=== PATIENT | male | born 1950 | race Caucasian/White ===

== ENCOUNTER 2020-01-11 16:18 | Emergency (ER) | payer MEDICARE, OTHER ==
--- OUTSIDE RECORDS SUMMARY | 2020-01-11 16:46 | XMS REPORT | Clinical Summary ---
:1950 Author Organization [facility], Address [id number] [place] [address] Care Team Providers Name Role Phone Didi MARRERO, Dr Robbins Unavailable Allergies Allergy Onset Date Reaction Severity Status Statins (HMG-CoA Not Indicated Not Indicated Moderate Active reductase inhibitors) Lyrica Not Indicated Dizziness/Lighthe Moderate Active adedness Baclofen Not Indicated Dizziness/Lighthe Mild Active adedness Methocarbamol Not Indicated Dizziness/Lighthe Mild Active adedness Assessment and Plan Assessment and Plan Date of Encounter: 2019-12-12 Plan: PLAN: Request new TENS. f/u with Dr. Live. F/u Dr. Rm at [facility]. Continue PT when able. Continue lidocaine patch. f/u with me in 3mo.. REQUEST AUTHORIZATION FOR TENS FOR HOME USE. PRIOR UNIT IS BROKEN AND NEEDS REPLACEMENT. Itzel Tolbert MD. cc: Dr. Robb; Dr. Live; Dr. Rm ([facility]) Date of Encounter: 2019-08-29 Plan: PLAN: f/u with Dr. Live on potential surgical options. Continue PT. f/u with Dr. Brooks to for injections and consider SCS. Continue lidocaine patch. I advis ed him this will go to 4% with the new drug formulary. D/c baclofen. Retrial of cyclobenzaprine prn. He was warned of sedative and lightheaded side effects. f/u with me in 3mo.. Itzel Tolbert MD. cc: Dr. Robb; Dr. Brooks ([facility]); Dr. Live. Date of Encounter: 2019-08-29 Addendum date 2019-08-29 source: Referral: REFERRALS: DR DANIEL ROBB via Fax, Jarred Live via Fax Date of Encounter: 2019-07-10 Plan: PLAN: X-ray lumbar spine with flex/ext views. I will call with results. f/u with Dr. Live on potential surgical options. Continue PT, which should go back t o 1x/wk after 6wks 2x/wk are completed. f/u with Dr. Brooks to discuss injections and SCS. Continue lidocaine patch. 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 f/u with me in 2mo.. Itzel Tolbert MD. cc: Dr. Robb; Dr. Brooks ([facility]); Dr. Live Date of Encounter: 2019-05-30 Plan: PLAN: MRI L-spine. His loop recorder card says "MRI conditional." Increase PT to 2x/wk for 6 wks then back to 1x/wk for 13 wks. f/u with Dr. Patel and Cecilia to discuss injections and SCS. f/u with me in 2mo.. REQUEST AUTHORIZATION FOR MRI OF THE LUMBAR SPINE WO CONTRAST AND PHYSICAL THERAPY FOR 2X/WK FOR 6 WKS AND THEN 1X/WK FOR 12 WKS Itzel Tolbert MD. cc: Dr. Robb; Dr. Brooks ([facility]); Dr. Patel Date of Encounter: 2019-05-30 Addendum date 2019-05-31 source: Referral: REFERRALS: DR DANIEL ROBB via Fax, RASHAWN PATEL via Fax Date of Encounter: 2019-05-17 Addendum date 2019-05-17 source: Doctor: Prashanth called [facility] and Dr. Patel will not be available until the week of 05-27-19. I tried to call Prashanth back and it was busy. Date of Encounter: 2019-04-18 Plan: PLAN: Continue PT and HEP. f/u with Dr. Brooks to discuss SCS. f/u with me in 3mo.. Itzel Tolbert MD. cc: Dr. Robb; Dr. Brooks ([facility]). Date of Encounter: 2019-04-18 Addendum date 2019-04-18 source: Referral: REFERRALS: DR DANIEL ROBB via Fax Date of Encounter: 2019-04-18 Addendum date 2019-04-18 source: Referral: REFERRALS: DR DANIEL ROBB via Fax Date of Encounter: 2019-01-17 Plan: PLAN: Continue PT and HEP. f/u with Dr. Brooks for another injection and to discuss SCS. f/u with me in 3mo.. Itzel Tolbert MD. cc: Dr. Robb; Dr. Brooks ([facility]). Date of Encounter: 2019-01-17 Addendum date 2019-01-17 source: Referral: REFERRALS: DR DANIEL ROBB via Fax Date of Encounter: 2019-01-17 Addendum date 2019-01-22 source: Doctor: REQUEST AUTHORIZATION FOR PHYSICAL THERAPY 1X/WEEK FOR 13 WEEKS FOR THERAPEUTIC EXERCISE. Date of Encounter: 2018-09-03 Plan: PLAN: Continue PT and HEP. f/u with Dr. Brooks prolga. Otherwise f/u with me in 3mo. Itzel Tolbert MD. cc: Dr. Robb; Dr. Brooks ([facility]) Date of Encounter: 2018-09-03 Addendum date 2018-09-03 source: Referral: REFERRALS: DR DANIEL ROBB via Fax Date of Encounter: 2018-04-19 Plan: PLAN: Continue PT and HEP. f/u with Dr. Brooks prolga if he decides to pursue SCS. Otherwise f/u in 3mo or sooner if needed. Itzel Tolbert MD. cc: Dr. Robb. Date of Encounter: 2018-04-19 Addendum date 2018-04-19 source: Referral: REFERRALS: DR DANIEL ROBB via Fax Date of Encounter: 2018-01-17 Plan: PLAN: Continue PT. He will be referred to the pain clinic at [facility] to consider IVY. He did see Dr. Gonzalez in the past before he had piriformis release. f/u in 3mo. Itzel Tolbert MD. cc: Dr. Robb. Date of Encounter: 2018-01-17 Addendum date 2018-01-17 source: Referral: REFERRALS: DR DANIEL ROBB via Fax Date of Encounter: 2018-01-17 Addendum date 2018-01-18 source: Doctor: Prashanth will see Dr. Patel. [facility] thought his ortho appt was the appt for Dr. Patel. He will see him in the next week. Date of Encounter: 2017-10-25 Plan: PLAN: Resend referral to Dr. Patel for consultation. Continue PT. I told him to decrease cymbalta to 30mg qday for a week then go to qod for a week and off to see if it does anything for his pain. f/u in 3mo.. Itzel Tolbert MD. cc: Dr. Robb. Date of Encounter: 2017-10-25 Addendum date 2017-10-26 source: Referral: REFERRALS: DR DANIEL ROBB via Fax Date of Encounter: 2017-07-24 Plan: PLAN: Refer to Dr. Patel for consultation. Continue PT and cymbalta. f/u in 3mo.. Itzel Tolbert MD. cc: Dr. Robb. Date of Encounter: 2017-07-24 Addendum date 2017-07-24 source: Referral: REFERRALS: DR DANIEL ROBB via Fax Date of Encounter: 2017-05-25 Plan: PLAN: Request updated MRI of L-spine that has not been done since 2012. We may also consider need for updated pelvis MRI. We discussed pain clinic for IVY again. I will restart cymbalta which he weaned off after surgery. f/u in 3mo.. REQUEST AUTHORIZATION FOR MRI OF LUMBAR SPINE. Itzel Tolbert MD. cc: Dr. Robb. Date of Encounter: 2017-05-25 Addendum date 2017-05-25 source: Referral: REFERRALS: DR DANIEL ROBB via Fax Date of Encounter: 2017-02-16 Plan: PLAN: I will ask for additional PT and f/ u in 3mo.. REQUEST AUTHORIZATION FOR PHYSICAL THERAPY 1X/WK FOR 12WKS.. Itzel Tolbert MD. cc: Dr. Robb. Date of Encounter: 2017-02-16 Addendum date 2017-02-16 source: Referral: REFERRALS: DR DANIEL ROBB via Fax Date of Encounter: 2016-10-24 Plan: PLAN: I will ask for PT and f/u in 3mo. REQUEST AUTHORIZATION FOR PHYSICAL THERAPY 2X/WK FOR 6WKS. Itzel Tolbert MD. cc: Dr. Robb. Date of Encounter: 2015-10-21 Plan: PLAN: Continue HEP. f/u next year or sooner if needed. Itzel Tolbert MD. cc: Dr. Robb. Date of Encounter: 2015-05-07 Plan: PLAN: Continue HEP. f/u in 6mo or sooner if needed. We discussed getting a new mattress to help with night pain and use of acetaminophen 1000mg qhs. Itzel Tolbert MD. cc: Dr. Robb. Date of Encounter: 2015-02-05 Plan: PLAN: Continue HEP. f/u with me in 3mo to determine if at [facility]. Itzel Tolbert MD. cc: Dr. Robb. Date of Encounter: 2014-11-12 Plan: PLAN: Continue PT. f/u with me in 3mo. Itzel Tolbert MD. cc: Dr. Connor, Dr. Taylor, Dr. Robb. Date of Encounter: 2014-07-24 Plan: PLAN: Continue PT. I educated him in the weaning process for Cymbalta. I rx 30mg pills and he will decrease the dose. If he gets any withdrawl he will try to alt ernate 30mg with 60mg for a week and then go to 30mg qday. About a week or two after this he can try to d/c the med. He is to call with any questions or if he finds pain increases as he decreases or st ops cymbalta he will call for a new prescription for 90days that he can use for the mailorder pharmacy. f/u with me in 3mo. Itzel Tolbert MD. cc: Dr. Connor, Dr. Taylor, Dr. Robb. MEDICATIONS: Cymbalta 30 mg oral delayed release capsule Take 1 po qday. (start date : 07/24/2014) prescription: qty 30 of 30 mg Take 1 po qday. ( 1 refills) Date of Encounter: 2014-04-29 Plan: PLAN: Restart PT as ordered by ortho. Continue cymbalta for now. Time will tell if he needs to continue it and/or PT to keep working. He is out of work per ortho. I educated him on weaning off percocet by using acetaminophen prn. f/u with me in 3mo. Itzel Tolbert MD cc: Dr. Connor, Dr. Taylor, Dr. Robb MEDICATIONS: Cymbalta 60 mg oral delayed release capsule 60 mg Take 1 po qday. (start date: 03/07/2012) prescription: not prescribed this visit Date of Encounter: 2014-01-07 Plan: PLAN: Steroid injection today directed at the hamstring origin. Continue PT and f/u with orthopedics on potential interventions. Continue same meds. f/u with me in 2 months. He will f/u with his PCP on EMG/NCS results. PROCEDURE: STEROID INJECTION FOR SCIATICA AT THE ORIGIN OF THE HAMSTRINGS AT THE ISCHIAL TUBEROSITY. The sciatic nerve and ischial tuberosity were identified using real-time ultrasound. The intended injection site was marked with indelible marker. The patient was advised of risks of injection (including, but not limited to bleeding and infection and nerve injury), benefits (possible pain relief), alternatives (including PT and medications), and expected results (including increased pain and no improvement). He decided to proceed with the injection. The area was cleansed with iodine and alcohol and then injected at the ischial tuberosity with 3ml of 1% lidocaine and 40mg depomedrol. He did not experience any paresthesias. No complications. He was advised to ice the injected area 20min 3x today and tomorrow. Itzel Tolbert MS, MD. CC: Dr. Robb, Dr. Connor, Dr. Taylor Date of Encounter: 2013-10-10 Plan: PLAN: I gave him a copy of the PT prescription I wrote on 09/17/13. A MG2 was already faxed in. He is currently our of work for a injury to his wrist and not due to his back. Ideally he would still continue PT with the expectation that he will return to work. Continue same meds. f/u with me in 3 months. Itzel Tolbert MS, MD. CC: Dr. Robb MEDICATIONS: Cymbalta 60 mg oral delayed release capsule 60 mg Take 1 po qday. (start date: 03/07/2012) prescription: not prescribed this visit Care goals and future scheduled procedures: Pain severity - Reported Care goals and future scheduled procedures: Pneumococcal vaccination given ( finding) Care goals and future scheduled procedures: Falls risk assessment Care goals and future scheduled procedures: Pain severity - Reported Care goals and future scheduled procedures: Falls risk assessment Care goals and future scheduled procedures: Pneumococcal vaccination given ( finding) Care goals and future scheduled procedures: Pain severity - Reported Care goals and future scheduled procedures: Pneumococcal vaccination given ( finding) Care goals and future scheduled procedures: Falls risk assessment Care goals and future scheduled procedures: Pain severity - Reported Care goals and future scheduled procedures: Pneumococcal vaccination given ( finding) Care goals and future scheduled procedures: Falls risk assessment Care goals and future scheduled procedures: Pain severity - Reported Care goals and future scheduled procedures: Falls risk assessment Care goals and future scheduled procedures: Pneumococcal vaccination given ( finding) Care goals and future scheduled procedures: Pain severity - Reported Care goals and future scheduled procedures: Falls risk assessment Care goals and future scheduled procedures: Pneumococcal vaccination given ( finding) Care goals and future scheduled procedures: Pain severity - Reported Care goals and future scheduled procedures: Falls risk assessment Care goals and future scheduled procedures: Pneumococcal vaccination given ( finding) Care goals and future scheduled procedures: Pain severity - Reported Care goals and future scheduled procedures: Falls risk assessment Care goals and future scheduled procedures: Pneumococcal vaccination given ( finding) Care goals and future scheduled procedures: Pain severity - Reported Care goals and future scheduled procedures: Pneumococcal vaccination given ( finding) Care goals and future scheduled procedures: Falls risk assessment Care goals and future scheduled procedures: Pain severity - Reported Care goals and future scheduled procedures: Falls risk assessment Care goals and future scheduled procedures: Pneumococcal vaccination given ( finding) Care goals and future scheduled procedures: Pain severity - Reported Care goals and future scheduled procedures: Pain severity - Reported Care goals and future scheduled procedures: Falls risk assessment Care goals and future scheduled procedures: Pneumococcal vaccination given ( finding) Care goals and future scheduled procedures: Pain severity - Reported Care goals and future scheduled procedures: Pain severity - Reported Care goals and future scheduled procedures: Falls risk assessment Care goals and future scheduled procedures: Pneumococcal vaccination given ( finding) Care goals and future scheduled procedures: Pain severity Bae-Jean FACES pain rating scale Care goals and future scheduled procedures: Falls risk assessment Care goals and future scheduled procedures: Pneumococcal vaccination given ( finding) Care goals and future scheduled procedures: Pain severity Bae-Jean FACES pain rating scale Care goals and future scheduled procedures: Falls risk assessment Care goals and future scheduled procedures: Pneumococcal vaccination given ( finding) Care goals and future scheduled procedures: Transfer of care (procedure) Care goals and future scheduled procedures: Transfer of care (procedure) Care goals and future scheduled procedures: Transfer of care (procedure) Care goals and future scheduled procedures: Transfer of Care (procedure) Care goals and future scheduled procedures: Transfer of care (procedure) Care goals and future scheduled procedures: Transfer of care (procedure) Care goals and future scheduled procedures: Transfer of Care (procedure) Care goals and future scheduled procedures: Transfer of care (procedure) Care goals and future scheduled procedures: Transfer of care (procedure) Care goals and future scheduled procedures: Transfer of care (procedure) Care goals and future scheduled procedures: Transfer of care (procedure) Care goals and future scheduled procedures: Transfer of care (procedure) Care goals and future scheduled procedures: Transfer of Care (procedure) Care goals and future scheduled procedures: Transfer of care (procedure) Care goals and future scheduled procedures: Transfer of care (procedure) Care goals and future scheduled procedures: Transfer of Care (procedure) Care goals and future scheduled procedures: Transfer of care (procedure) Care goals and future scheduled procedures: Transfer of care (procedure) Care goals and future scheduled procedures: Transfer of care (procedure) Care goals and future scheduled procedures: Transfer of care (procedure) Care goals and future scheduled procedures: Transfer of care (procedure) Care goals and future scheduled procedures: Transfer of Care (procedure) Care goals and future scheduled procedures: Transfer of care (procedure) Care goals and future scheduled procedures: Transfer of Care (procedure) Care goals and future scheduled procedures: Transfer of care (procedure) Tests Pending: MR Lumbar spine WO contrast Expected results on: 2017-06-01 Tests Pending: MR Lumbar spine WO contrast Expected results on: 2019-05-30 Tests Pending: XR Lumbar spine Lateral Views W flexion and W extension Expected results on: 2019-07-10 Encounters Encounter Diagnosis Location Date Not specified [facility] 2019-12-13 Spondylolisthesis, lumbar [facility] 2019-12-12 region Sciatica, right side [facility] 2019-12-12 Spinal stenosis of lumbar [facility] 2019-12-12 region Not specified [facility] 2019-10-16 Not specified [facility] 2019-09-09 Spondylolisthesis, lumbar [facility] 2019-08-29 region Sciatica, right side [facility] 2019-08-29 Spinal stenosis of lumbar [facility] 2019-08-29 region Not specified [facility] 2019-08-20 Not specified [facility] 2019-08-19 Not specified [facility] 2019-08-09 Not specified [facility] 2019-08-08 Not specified [facility] 2019-07-29 Spondylolisthesis, lumbar [facility] 2019-07-10 region Sciatica, right side [facility] 2019-07-10 Spinal stenosis of lumbar [facility] 2019-07-10 region Not specified [facility] 2019-06-18 Not specified [facility] 2019-06-17 Spondylolisthesis, lumbar [facility] 2019-05-30 region Sciatica, right side [facility] 2019-05-30 Spinal stenosis of lumbar [facility] 2019-05-30 region Not specified [facility] 2019-05-30 Not specified [facility] 2019-05-28 Not specified [facility] 2019-05-17 Not specified [facility] 2019-05-10 Not specified [facility] 2019-05-08 Not specified [facility] 2019-05-08 Not specified [facility] 2019-05-07 Not specified [facility] 2019-05-01 Spondylolisthesis, lumbar [facility] 2019-04-18 region Sciatica, right side [facility] 2019-04-18 Spinal stenosis of lumbar [facility] 2019-04-18 region Not specified [facility] 2019-01-24 Spondylolisthesis, lumbar [facility] 2019-01-17 region Sciatica, right side [facility] 2019-01-17 Spinal stenosis of lumbar [facility] 2019-01-17 region Sciatica, right side [facility] 2018-09-03 Spinal stenosis of lumbar [facility] 2018-09-03 region Not specified [facility] 2018-07-31 Spondylolisthesis, lumbar [facility] 2018-04-19 region Sciatica, right side [facility] 2018-04-19 Spinal stenosis of lumbar [facility] 2018-04-19 region Spondylolisthesis, lumbar [facility] 2018-01-17 region Medicine Sciatica, right side [facility] 2018-01-17 Medicine Spinal stenosis of lumbar [facility] 2018-01-17 region Medicine Spondylolisthesis, lumbar [facility] 2017-10-25 region Medicine Spinal stenosis of lumbar [facility] 2017-10-25 region Medicine Spondylolisthesis, lumbar [facility] 2017-07-24 region Medicine Sciatica, right side [facility] 2017-07-24 Medicine Spinal stenosis of lumbar [facility] 2017-07-24 [facility] Not specified [facility] 2017-07-06 Medicine Not specified [facility] 2017-06-01 Medicine Not specified [facility] 2017-05-26 Medicine Rupture of hamstring tendon [facility] 2017-05-25 Medicine Spondylolisthesis, lumbar [facility] 2017-05-25 [facility] Sciatica, right side [facility] 2017-05-25 Medicine Not specified [facility] 2017-02-27 Medicine Spondylolisthesis, lumbar [facility] 2017-02-16 [facility] Sciatica, right side [facility] 2017-02-16 Medicine Not specified [facility] 2016-11-03 Medicine Rupture of hamstring tendon [facility] 2016-10-24 Medicine Spondylolisthesis, lumbar [facility] 2016-10-24 region Medicine Sciatica, right side [facility] 2016-10-24 Medicine Rupture of hamstring tendon [facility] 2015-10-21 Spondylolisthesis, lumbar [facility] 2015-10-21 region Sciatica, right side [facility] 2015-10-21 Rupture of hamstring tendon [facility] 2015-05-07 Spondylolisthesis, lumbar [facility] 2015-05-07 region Lumbosacral spondylosis [facility] 2015-05-07 without myelopathy Sciatica, right side [facility] 2015-05-07 Rupture of hamstring tendon [facility] 2015-02-05 Spondylolisthesis, lumbar [facility] 2015-02-05 region Lumbosacral spondylosis [facility] 2015-02-05 without myelopathy Sciatica, right side [facility] 2015-02-05 Rupture of hamstring tendon [facility] 2014-11-12 Spondylolisthesis, lumbar [facility] 2014-11-12 region Lumbosacral spondylosis [facility] 2014-11-12 without myelopathy Sciatica, right side [facility] 2014-11-12 Rupture of hamstring tendon [facility] 2014-07-24 Spondylolisthesis, lumbar [facility] 2014-07-24 region Lumbosacral spondylosis [facility] 2014-07-24 without myelopathy Sciatica, right side [facility] 2014-07-24 Spondylolisthesis, lumbar [facility] 2014-04-29 region Lumbosacral spondylosis [facility] 2014-04-29 without myelopathy Sciatica, right side [facility] 2014-04-29 Spondylolisthesis, lumbar [facility] 2014-01-07 region Lumbosacral spondylosis [facility] 2014-01-07 without myelopathy Sciatica, right side [facility] 2014-01-07 Not specified [facility] 2014-01-02 Not specified [facility] 2013-12-17 Spondylolisthesis, lumbar [facility] 2013-10-10 region Lumbosacral spondylosis [facility] 2013-10-10 without myelopathy Sciatica, right side [facility] 2013-10-10 Not specified [facility] 2013-09-17 Not specified [facility] 2013-07-24 Not specified [facility] 2013-07-15 Not specified [facility] 2013-04-09 Not specified [facility] 2013-04-01 Not specified [facility] 2012-12-31 Not specified [facility] 2012-11-07 Not specified [facility] 2012-07-04 Not specified [facility] 2012-05-02 Not specified [facility] 2012-03-07 Not specified [facility] 2011-11-24 Functional Status No information Mental status No information Immunizations No immunization history Medications Material RXnormCode GenericName ProductStrength StartDate StopDate SIG Cymbalta 60 mg RxNorm: DULoxetine 60 mg 2012-03-07 2014-07-24 Take 1 oral delayed 076172 po release capsule qday. Flexeril 10 mg RxNorm: cyclobenzaprine 10 mg 2012-12-31 2013-11-15 Take 1 oral tablet [id number] po tid prn muscle spasm. Cymbalta 30 mg RxNorm: DULoxetine 30 mg 2014-07-24 2019-05-08 Take oral delayed [id number] 1-2 po release capsule qday Methocarbamol RxNorm: Methocarbamol 750 MG Not 2019-05-30 Take 1 750 MG Oral [id number] Indicated po Q6h Tablet prn muscle spasm Lidocaine 5 % RxNorm: Lidocaine 5 % Not Not Apply External Patch [id number] Indicated Indicated 1-3 to back and remove after 12hrs as needed Baclofen 10 MG RxNorm: Baclofen 10 MG Not 2019-08-29 Take Oral Tablet [id number] Indicated 0.5-1 po bid Cyclobenzaprine RxNorm: Cyclobenzaprine 5 MG Not Not Take HCl 5 MG Oral [id number] HCl Indicated Indicated 1/2 po Tablet qday prn severe muscle spasm Problem List Problem Description Problem StartDate Status Spinal stenosis of lumbar region 2017-07-24 active Sciatica, right side 2015-10-21 active Spondylolisthesis, lumbar region 2015-10-21 active Rupture of hamstring tendon 2015-10-21 active Lumbosacral spondylosis without Not Applicable active myelopathy Medical Equipment No Information Procedures Procedure Date Medication Reconciliation (procedure) Performed: 2019-12-12 Medication Allergy Review/Reconciliation Performed: 2019-12-12 Diagnosis and Problem List Review/Reconciliation Performed: 2019-12-12 Medication Reconciliation (procedure) Performed: 2019-08-29 Medication Allergy Review/Reconciliation Performed: 2019-08-29 Diagnosis and Problem List Review/Reconciliation Performed: 2019-08-29 Documentation of current medications (procedure) Performed: 2019-08-29 Body mass index (BMI) [Ratio] Performed: 2019-08-29 Medication Reconciliation (procedure) Performed: 2019-07-10 Medication Allergy Review/Reconciliation Performed: 2019-07-10 Diagnosis and Problem List Review/Reconciliation Performed: 2019-07-10 Body mass index (BMI) [Ratio] Performed: 2019-07-10 Documentation of current medications (procedure) Performed: 2019-07-10 Medication Reconciliation (procedure) Performed: 2019-05-30 Medication Allergy Review/Reconciliation Performed: 2019-05-30 Diagnosis and Problem List Review/Reconciliation Performed: 2019-05-30 Documentation of current medications (procedure) Performed: 2019-05-30 Body mass index (BMI) [Ratio] Performed: 2019-05-30 Medication Reconciliation (procedure) Performed: 2019-04-18 Medication Allergy Review/Reconciliation Performed: 2019-04-18 Diagnosis and Problem List Review/Reconciliation Performed: 2019-04-18 Body mass index (BMI) [Ratio] Performed: 2019-04-18 Documentation of current medications (procedure) Performed: 2019-04-18 Body mass index (BMI) [Ratio] Performed: 2019-01-17 Medication Reconciliation (procedure) Performed: 2019-01-17 Documentation of current medications (procedure) Performed: 2019-01-17 Calculated BMI above normal parameters and a Performed: 2018-09-03 follow-up plan was documented Counseling about physical activity (exercise) Performed: 2018-09-03 Medication Reconciliation (procedure) Performed: 2018-09-03 Documentation of current medications (procedure) Performed: 2018-09-03 Calculated BMI above normal parameters and a Performed: 2018-04-19 follow-up plan was documented Counseling about physical activity (exercise) Performed: 2018-04-19 Medication Reconciliation (procedure) Performed: 2018-04-19 Documentation of current medications (procedure) Performed: 2018-04-19 Calculated BMI above normal parameters and a Performed: 2018-01-17 follow-up plan was documented Counseling about physical activity (exercise) Performed: 2018-01-17 Medication Reconciliation (procedure) Performed: 2018-01-17 Documentation of current medications (procedure) Performed: 2018-01-17 Calculated BMI above normal parameters and a Performed: 2017-10-25 follow-up plan was documented Counseling about physical activity (exercise) Performed: 2017-10-25 Medication Reconciliation (procedure) Performed: 2017-10-25 Documentation of current medications (procedure) Performed: 2017-10-25 Medication Reconciliation (procedure) Performed: 2017-07-24 Documentation of current medications (procedure) Performed: 2017-07-24 Calculated BMI above normal parameters and a Performed: 2017-07-24 follow-up plan was documented Next appointment Performed: 2017-07-24 Calculated BMI above normal parameters and a Performed: 2017-05-25 follow-up plan was documented Next appointment Performed: 2017-05-25 Medication Reconciliation (procedure) Performed: 2017-05-25 Documentation of current medications (procedure) Performed: 2017-05-25 Calculated BMI above normal parameters and a Performed: 2017-02-16 follow-up plan was documented Weight control education (procedure) Performed: 2017-02-16 Medication Reconciliation (procedure) Performed: 2017-02-16 Documentation of current medications (procedure) Performed: 2017-02-16 Calculated BMI above normal parameters and a Performed: 2016-10-24 follow-up plan was documented Next appointment Performed: 2016-10-24 Medication Reconciliation (procedure) Performed: 2016-10-24 Documentation of current medications (procedure) Performed: 2016-10-24 Medication Reconciliation (procedure) Performed: 2015-10-21 Documentation of current medications (procedure) Performed: 2015-10-21 Calculated BMI above normal parameters and a Performed: 2015-10-21 follow-up plan was documented Medication Reconciliation (procedure) Performed: 2015-05-07 Documentation of current medications (procedure) Performed: 2015-05-07 Calculated BMI above normal parameters and a Performed: 2015-05-07 follow-up plan was documented Medication Reconciliation (procedure) Performed: 2015-02-05 Documentation of current medications (procedure) Performed: 2015-02-05 Calculated BMI above normal parameters and a Performed: 2015-02-05 follow-up plan was documented Medication Reconciliation (procedure) Performed: 2014-11-12 Documentation of current medications (procedure) Performed: 2014-11-12 Medication Reconciliation (procedure) Performed: 2014-07-24 Documentation of current medications (procedure) Performed: 2014-07-24 Medication Reconciliation (procedure) Performed: 2014-04-29 Documentation of current medications (procedure) Performed: 2014-04-29 Documentation of current medications (procedure) Performed: 2014-01-07 Documentation of current medications (procedure) Performed: 2013-10-10 Reason for Referral To: DR. Dixon: Content: March 07, 2012RE: Prashanth Marshall.Outpatient f/u visit #13PRIMARY CARE PROVIDER: Dr. oRbb.CHIEF COMPLAINT: L5-S1 retrolisthesis and facet arthropathy at L4-5 with sciatica.INTERIM HISTORY: This is a 61-year-old man that I initially saw on 01/13 and last on 11/24/11. I had him go back to PT. His pain was worse since being less active after heart surgery.PT helps keep him working, but his pain is still varying between 2-10/10. It is worst at the end ofthe day and he feels best when his is up active at work. He uses the TENS nightly. Lyrica each evening made him dizzy the next day so he only uses it PRN and that is rare. He keeps flexeril with himat work, but does not use that regularly. There is no new numbness, tingling, or weakness. No bowel or bladder dysfunction.MEDICATIONS: Metoprolol 75 mg qday, Flomax, Finasteride, Plavix 75 mg qday, Cymbalta 60 mg qday, aspirin 325 mg qday, Lovaza 1000 mg 4 times per day, Flexeril PRN, Lyrica 75mg qhs prn, Pravastatin.ALLERGIES: Lipitor, Vytorin , and Crestor.No change in PMH, family history, orsocial history.ROS: See HPI.PE :.GENERAL: Well-developed, well-nourished.MENTAL STATUS: No acute distress. Alert and appropriate.NEURO:. Lower Extremity Motor: 5/5 bilaterally with normal pin prick sensation and symmetric DTRs.MUSCULOSKELETAL:.STATION AND GAIT: Normal steady gait. Iliac crests equal standing.LUMBAR SPINE: Normal ROM and as it has been typical in the past his pain is deeper than where I can palpate.RIGHT LOWER EXTREMITY: Normal appearance with full ROM. No neural stretch signs. No specific tenderness to palpation.LEFT LOWER EXTREMITY: Normal appearance with full ROM. No neural stretch signs. No specific tenderness to palpation.IMPRESSION: L5-S1 retrolisthesis with facet arthropathy at L4-5 and history of sciatica. He is not getting great benefit from Lyrica and I advised to try using Flexeril instead at night as needed. He needs to continue PT to assist with keeping him working. He'd like to work until 65yo if possible.PLAN: 1. continue PT.2. Continue current meds. Try Flexeril instead of Lyrica. Keep using TENS. I renewed Cymbalta.3. f/u 3months.Itzel Tolbert MS, .cc: Dr. Robb.To: DR. Dixon: Content: March 07, 2012RE: Prashanth Marshall.Outpatient f/u visit #13PRIMARY CARE PROVIDER: Dr. Robb.CHIEF COMPLAINT: L5-S1 retrolisthesis and facet arthropathy at L4-5 with sciatica.INTERIM HISTORY: This is a 61-year-old man that I initially saw on 01/13/09 and last on 11/24/11. I had him go back to PT. His pain was worse since being less active after heart surgery.PT helps keep him working, but his pain is still varying between 2-10/10. It is worst at the end ofthe day and he feels best when his is up active at work. He uses the TENS nightly. Lyrica each evening made him dizzy the next day so he only uses it PRN and that is rare. He keeps flexeril with himat work, but does not use that regularly. There is no new numbness, tingling, or weakness. No bowel or bladder dysfunction.MEDICATIONS: Metoprolol 75 mg qday, Flomax, Finasteride, Plavix 75 mg qday, Cymbalta 60 mg qday, aspirin 325 mg qday, Lovaza 1000 mg 4 times per day, Flexeril PRN, Lyrica 75mg qhs prn, Pravastatin.ALLERGIES: Lipitor, Vytorin , and Crestor.No change in PMH, family history, orsocial history.ROS: See HPI.PE :.GENERAL: Well-developed, well-nourished.MENTAL STATUS: No acute distress. Alert and appropriate.NEURO:. Lower Extremity Motor: 5/5 bilaterally with normal pin prick sensation and symmetric DTRs.MUSCULOSKELETAL:.STATION AND GAIT: Normal steady gait. Iliac crests equal standing.LUMBAR SPINE: Normal ROM and as it has been typical in the past his pain is deeper than where I can palpate.RIGHT LOWER EXTREMITY: Normal appearance with full ROM. No neural stretch signs. No specific tenderness to palpation.LEFT LOWER EXTREMITY: Normal appearance with full ROM. No neural stretch signs. No specific tenderness to palpation.IMPRESSION: L5-S1 retrolisthesis with facet arthropathy at L4-5 and history of sciatica. He is not getting great benefit from Lyrica and I advised to try using Flexeril instead at night as needed. He needs to continue PT to assist with keeping him working. He'd like to work until 65yo if possible.PLAN: 1. continue PT.2. Continue current meds. Try Flexeril instead of Lyrica. Keep using TENS. I renewed Cymbalta.3. f/u 3months.Itzel Tolbert MS, .cc: Dr. Robb.To: DR. iDxon: Content: May 02, 2012RE: Prashanth Ahnpatient f/u visit #14.PRIMARY CARE PROVIDER: Dr. Pickering COMPLAINT: L5-S1 retrolisthesis and facet arthropathy at L4-5 with history of sciatica.INTERIM HISTORY: This is a 61-year-old man that I initially saw on 01/13/09 and last on 03/07/12. At that time hereported that Lyrica was making him a bit dizzy so he only usedit as needed at bedtime and that was fairly rare. Apparently since then he was having more issues not being able to sleep with his pain so he was taking it more on a regular basis, but he started getting dizziness during the day. He also in general has had body aches upper and lower which he has attributed before to using Statin medications for his cholesterol. He has been trying to get off of his medications as a result of this to figure out if one of them is the cause of his pain. He stopped taking Pravastatin and then also decided to go off of Cymbalta. Unfortunately, when he did it about 2 weeks ago he immediately got hip pain back and he has just not been feeling right since. He has stiffnessthroughout his body and still complains of dizziness. He works for the [employer] and he is not sure that he is safe to be working especially with the dizziness. He denies any new leg numbness, tingling, or weakness. No bowel or bladder dysfunction.MEDICATIONS : Reviewed with the patient, Metoprolol 75 mg qday, Flomax, Finasteride, Plavix 75 mg qday, Cymbalta - he stopped taking, aspirin 325 mg qday, Lovaza 1000 mg 4 times per day, Lyrica 75mg qhs.ALLERGIES: Lipitor, Vytorin, Pravastatin, Crestor , Lyrica. He has been told not to take any gabriella medications.No change in PMH, family history, or social history.ROS: See HPI.PE:GENERAL: Well-developed, well- nourished.MENTAL STATUS: No acute distress. Alert and appropriate.NEURO:Lower Extremity Motor: 5/5 bilaterally with normal pin prick sensation and symmetric DTRs.MUSCULOSKELETAL:STATION AND GAIT: Iliac crests equal standing. He is able to heeland toe walk.LUMBAR SPINE: Normal ROM, although he has difficulty with extension and approx 75% bilateral lateral bending. No specific tenderness to palpation.RIGHT LOWER EXTREMITY: Normal appearance with full ROM. Positive slump test. He is tender directly at the sciatic notch. Negative Gee.LEFT LOWER EXTREMITY: Normal appearance with full ROM. Positive slump test and SLR. No specific tenderness topalpation.IMPRESSION: L5-S1 retrolisthesis with facet arthropathy at L4-5 and history of sciatica. Ithink he is having more radicular symptoms now being off of the Cymbalta. It sounded like before he didnt tolerate Lyrica and I think he tolerates it even less so now being on it on a daily basis. Given the duties of his job, I think it is reasonable for him to be out of work for the next month as we try to straighten out his medications so that he is not dizzy and at risk to himself or co-workers.PLAN: 1. D/C Lyrica.2. D/C Cyclobenzaprine.3. He is going to restart Cymbalta 30 mg tonight and in afew days go back up to 60 mg per day.4. I prescribed for him Robaxin 750 to 1500 mg q6hrs PRN. I expect him to use it primarily in the evening to start and, if tolerated, he can use it during the time.I think this might help him sleep and also be less sedating than Cyclobenzaprine was.5. I gave him an out of work note until 05/31/12. He is to call me a week before if he does not feel that he is goingto be ready to go back to work. I dont expect that his pain will be gone, but I hope that his dizziness issues have resolved.6. Continue with his therapy and I will see him back ideally in a month or at least w/in 3 months. Itzel Tolbert, MS, [facility]: Dr. Blum: LINDSEY TRENT CARNEY & WINDYPhone: Content: SEE NOTESTo: DR. Dixon: Content: SEE NOTESTo : DR. Essie CONNORPhone: Content: SEE NOTESTo: DR. Dixon: [phone]: SEE NOTESTo: LINDSEY TRENT CARNEY &ampMateo TEMPLEPhone: Content: see office note (s)To: DR. BARRETTPhone: Content: see office note (s)To: DR. Essie CONNORPhone: Content : see office note (s)To: DR. Dixon: Content: see office note (s)Referral to physician (procedure)To: DR DANIEL Dixon: [phone]: Please see Dr. Tolbert's note.Referral to physician (procedure)To : DR DANIEL Dixon: [phone]: Please see Dr. Tolbert's note.Referral to physician (procedure)To: DR DANIEL Dixon: [phone]: Please see Dr. Tolbert's Note.Referral to physician (procedure)To : DR DANIEL Dixon: [phone]: Please see Dr. Tolbert's noteReferral to physician (procedure)To: DR DANIEL Dixon: [phone]: Please see Dr. Tolbert's noteReferral to physician (procedure)To: DR DANIEL Dixon: [phone]: Please see Dr. Tolbert's note.Referral to physician (procedure)To: DR DANIEL Dixon: [phone]: Please see Dr. Tolbert's Note.Referral to physician (procedure)To : DR DANIEL Dixon: [phone]: Please see Dr. Tolbert's Note.Referral to physician (procedure)To: DR DANIEL Dixon: [phone]: Please see Dr. Tolbert's note.Referral to physician (procedure)To : DR DANIEL Dixon: [phone]: Please see Dr Tolbert's note.Referral to physician (procedure)To: DR DANIEL Dixon: [phone]: Please see Dr. Tolbert's noteReferral to orthopedic surgeon ( procedure)To: RASHAWN Allenx: Content: Please see 's noteReferral to physician (procedure)To: DR DANIEL Dixon: [phone]: Please see Dr. Tolbert's note.Referral to neurosurgeon (procedure) To: Vassilios DimopoulosPhone: content: Please see Dr. Tolbert's note. Results Test Name Value Date Status Lab Name and Specimen Info Address 2019-07-11 [facility] ([phone]) [facility] [place] [address] ([phone]) ([phone]) [place] [address] 2019-07-11 [place] [address] [facility] [place] [address] [place] [address] [facility] 2019-07-11 [facility] [address] [address] [facility] [address] [place] [address] Care 2019-07-11 [facility] [address] [place] [address] Imaging - Main Sabael 2019-07-11 [facility] Imaging - [address] [place] [address] Imaging - [facility] 2019-07-[address] [address] CC:Itzel Tolbert MD; 2019-07-11 [facility] Daniel Robb MD; Vassilios [address] [place] [address] [place] [address] 2019-07-11 [facility] [address] [place] [address] 2019-07-11 [address] [address] [place] [address] 2019-07-[address] [address] 2019-07-[address] [address] Copy to: 2019-07-11 [address] [address] [place] [address] 2019-07-[address] [address] Transcribed Date/Time: 2019-07-11 [facility] 07/11/[address] [place] [address] Dictated Date/Time: 2019-07-11 [facility] 07/11/[address] [place] [address] Dictated By: Valerio Xavier 2019-07-11 [facility] Sarai MARRERO [facility] [place] [address] 2019-07-[address] [address] <Electronically signed by 2019-07-11 [facility] Valerio Moon MD in OV> [facility] 07/11/19 1041 [place] [address] 2019-07-11 [facility] [address] [place] [address] [place] [address] 2019-07-11 [address] [address] [place] [address] 2019-07-11 [address] [address] [facility] [place] [address] 2019-07-11 [facility] [address] [place] [address] IMPRESSION: MODERATE TO 2019-07-11 [facility] SEVERE DEGENERATIVE DISC [address] [place] [address] 2019-07-11 [facility] [address] [place] [address] There is moderate to 2019-07-11 [facility] severe multilevel [facility] [address] degenerative [place] [address] 2019-07-11 [facility] [address] [place] [address] for subluxation with 2019-07-11 [facility] flexion and extension. [facility] [place] [address] FINDINGS: The vertebra 2019-07-11 [facility] are in normal alignment. [address] [facility] No fracture [place] [address] is no evidence 2019-07-11 [address] [address] [place] [address] TECHNIQUE: Neutral, 2019-07-11 [facility] flexion and extension [facility] [place] [address] lumbar spine were obtained. 2019-07-11 [address] [address] [place] [address] COMPARISON: Comparison 2019-07-11 [facility] is made with a prior study [facility] from July 05, [place] [address] 2019-07-11 [address] [address] [place] [address] INDICATION: 2019-07-11 [facility] Spondylolisthesis lumbar [facility] [place] [address] CPT: 72376 2019-07-11 [address] [address] [place] [address] Accession Number: 2019-07-11 [facility] [id number] [facility] [place] [address] Order Information: 2019-07-11 [facility] SP LUMBAR AP/LAT 2-3 VIEWS [facility] [place] [address] 2019-07-11 [address] [address] [place] [address] Exam Date: 07/11/19 2019-07-11 [facility] ADM Status: [facility] [place] [address] : 1950 Age: 68 2019-07-11 [facility] Sex: M [address] Location: [address] Ordering Physician: 2019-07-11 [facility] Itzel Tolbert MD [address] [place] [address].#: [place] [address] [id number] Patient Name: 2019-07-11 [facility] PRASHANTH MARSHALL [facility] [place] [address] Record#: [id number] ph ([phone]) 2019-06-17 [facility] ph ([phone]) [facility] [place] [address] ([phone]) [place] [address] 2019-06-17 [place] [address] [place] [address] [place] [address] [place] [address] 2019-06-17 [facility] [address] [address] Care 2019-06-[address] [address] Imaging - [facility] 2019-06-17 [facility] Imaging - [address] [place] [address] [facility] Urgent 2019-06-[address] [address] CC:Teena Hutchison, 2019-06-17 [facility] PT; Itzel Tolbert MD; [facility] [place] [address] 2019-06-[address] [address] 2019-06-[address] [address] 2019-06-[address] [address] 2019-06-[address] [address] Copy to: 2019-06-[address] [address] 2019-06-[address] [address] Transcribed Date/Time: 2019-06-17 [facility] 06/17/[address] [place] [address] Dictated Date/Time: 2019-06-17 [facility] 06/17/[address] [place] [address] Dictated By: Jose R 2019-06-17 [facility] Justin Posadas MD [facility] [place] [address] 2019-06-[address] [address] <Electronically signed 2019-06-17 [facility] by Jose R Posadas [facility] in OV> 06/17/19 1012 [place] [address] 2019-06-17 [facility] [address] [place] [address] [place] [address] 2019-06-17 [address] [address] [place] [address] 2019-06-17 [address] [address] [place] [address] 2019-06-[address] [address] THERE IS MODERATE 2019-06-17 [facility] NARROWING OF THE CENTRAL [facility] CANAL AT L3-L4 [place] [address] NARROWING AT L2-L3. THERE IS MULTILEVEL 2019-06-17 [facility] NEUROFORAMINAL NARROWING [facility] [place] [address] DEGENERATIVE DISC 2019-06-17 [facility] DISEASE AND [facility] [place] [address] IMPRESSION: 2019-06-17 [address] [address] [place] [address] 2019-06-[address] [address] OTHER: None. 2019-06-17 [address] [address] [place] [address] 2019-06-[address] [address] SOFT TISSUES: Renal 2019-06-17 [facility] cysts are noted. [facility] [place] [address] 2019-06-[address] [address] significant central 2019-06-17 [facility] canal stenosis. [facility] [place] [address] L5-S1: There is severe 2019-06-17 [facility] right and moderate left [address] [place] [address] narrowing. There is no central canal stenosis. 2019-06-17 [facility] [address] [place] [address] L4-L5: There is 2019-06-17 [facility] moderate bilateral [address] [place] [address] narrowing. There is no significant narrowing. There is 2019-06-17 [facility] moderate narrowing of [address] [place] [address] L3-L4: There is 2019-06-17 [facility] broad-based disc bulge. [address] [place] [address] bilateral neuroforaminal narrowing. There is 2019-06-17 [facility] mild narrowing of the [address] [place] [address] L2-L3: There is 2019-06-17 [facility] broad-based disc bulge. [address] [place] [address] bilateral neural foraminal narrowing. There is no 2019-06-17 [facility] significant central [address] [place] [address] L1-L2: There is 2019-06-17 [facility] broad-based disc bulge. [address] Drive [place] [address] neural foraminal stenosis. 2019-06-17 [facility] [address] [place] [address] moderate bilateral 2019-06-17 [facility] neuroforaminal [address] narrowing. [place] [address] significant central canal T12-L1: There is a left 2019-06-17 [facility] lateral recess disc [address] protrusion measuring 0.4 [place] [address] cm in depth. There is AXIAL IMAGES: 2019-06-17 [facility] [address] [place] [address] 2019-06-17 [facility] [address] [place] [address] throughout the spine. 2019-06-17 [facility] [address] [place] [address] INTERVERTEBRAL DISCS: 2019-06-17 [facility] There is diffuse loss of [address] [place] [address] height and T2 signal MUSCULATURE: There is 2019-06-17 [facility] moderate fatty [address] [place] [address] fatty atrophy. JOINTS: There is facet 2019-06-17 [facility] osteoarthritis most [address] [place] [address] lower lumbar spine. VERTEBRAL BODIES: There 2019-06-17 [facility] is multilevel [address] [place] [address] osteophyte formation. ALIGNMENT: There is 2019-06-17 [facility] grade [address] of L5 [place] [address] are normal in caliber, 2019-06-17 [facility] position, and [place] [address] SPINAL CORD, CONUS, AND 2019-06-17 [facility] CAUDA EQUINA: The Drive visualized spinal cord, [place] [address] conus, and cauda equina 2019-06-17 [facility] [address] [place] [address] FINDINGS: 2019-06-17 [facility] [address] [place] [address] 2019-06-17 [facility] [address] [place] [address] T1- and T2-weighted 2019-06-17 [facility] images, coronal [address] T2-weighted images, [place] [address] sagittal STIR images. TECHNIQUE: The 2019-06-17 [facility] following sequences were Drive obtained [place] [address] spine: Sagittal and axial 2019-06-17 [facility] [address] [place] [address] COMPARISONS: June 2019-09-30 [facility] [address] [place] [address] 2019-06-17 [facility] [address] [place] [address] HISTORY: OTHER FORMS OF 2019-06-17 [facility] SCOLIOSIS, LUMBAR REGION [address] [place] [address] CPT: 38711 2019-06-17 [facility] [address] [place] [address] Accession Number: 2019-06-17 [facility] [id number] [address] [place] [address] Order Information: 2019-06-17 [facility] MRI LUMBAR SPINE W/O [address] [place] [address] 2019-06-17 [facility] [address] [place] [address] Exam Date: 06/17/19 2019-06-17 [facility] ADM [address] Status: [place] [address] : 1950 Age: 2019-06-17 [facility] 68 Sex: M [address] Location: [address] Ordering Physician: 2019-06-17 [facility] Itzel Tolbert MD [address] Acct.#: [place] [address] [id number] Patient Name: 2019-06-17 [facility] PRASHANTH MARSHALL [address] [place] [id number] Record#: [id number] Social History Social History Effective Date Never smoker 2012-03-07 Sex: M 1950 Vital Signs Vital Name Measurement Date Value Pain 2019-12-12 5 Height 2019-08-29 182.88 cm Pain 2019-08-29 5 Weight 2019-08-29 100.7 kg BMI (Body Mass Index) 2019-08-29 30.11 kg/m2 Height 2019-07-10 182.88 cm Pain 2019-07-10 5 Weight 2019-07-10 99.34 kg BMI (Body Mass Index) 2019-07-10 29.7 kg/m2 Height 2019-05-30 180.34 cm Pain 2019-05-30 5 Weight 2019-05-30 97.52 kg BMI (Body Mass Index) 2019-05-30 29.99 kg/m2 Height 2019-04-18 180.34 cm Pain 2019-04-18 5 Weight 2019-04-18 97.52 kg BMI (Body Mass Index) 2019-04-18 29.99 kg/m2 Height 2019-01-17 180.34 cm Pain 2019-01-17 5 Weight 2019-01-17 97.52 kg BMI (Body Mass Index) 2019-01-17 29.99 kg/m2 Height 2018-09-03 180.34 cm Pain 2018-09-03 5 Weight 2018-09-03 95.25 kg BMI (Body Mass Index) 2018-09-03 29.29 kg/m2 Height 2018-04-19 180.34 cm Pain 2018-04-19 5 Weight 2018-04-19 97.98 kg BMI (Body Mass Index) 2018-04-19 30.13 kg/m2 Height 2018-01-17 180.34 cm Pain 2018-01-17 5 Weight 2018-01-17 103.42 kg BMI (Body Mass Index) 2018-01-17 31.8 kg/m2 Height 2017-10-25 180.34 cm Pain 2017-10-25 5 Weight 2017-10-25 104.78 kg BMI (Body Mass Index) 2017-10-25 32.22 kg/m2 Height 2017-07-24 180.34 cm Pain 2017-07-24 5 Weight 2017-07-24 100.24 kg BMI (Body Mass Index) 2017-07-24 30.82 kg/m2 Height 2017-05-25 180.34 cm Pain 2017-05-25 5 Weight 2017-05-25 94.8 kg BMI (Body Mass Index) 2017-05-25 29.15 kg/m2 Height 2017-02-16 180.34 cm Pain 2017-02-16 5 Weight 2017-02-16 100.24 kg BMI (Body Mass Index) 2017-02-16 30.82 kg/m2 Height 2016-10-24 182.88 cm Pain 2016-10-24 4 Weight 2016-10-24 104.33 kg BMI (Body Mass Index) 2016-10-24 31.19 kg/m2 Height 2015-10-21 182.88 cm Pain 2015-10-21 3 Weight 2015-10-21 103.42 kg BMI (Body Mass Index) 2015-10-21 30.92 kg/m2 Height 2015-05-07 182.88 cm Pain 2015-05-07 2 {score} Weight 2015-05-07 108.86 kg BMI (Body Mass Index) 2015-05-07 32.55 kg/m2 Height 2015-02-04 180.34 cm Pain 2015-02-04 2 {score} Weight 2015-02-04 106.14 kg BMI (Body Mass Index) 2015-02-04 32.64 kg/m2 Height 2014-11-11 180.34 cm Pain 2014-11-11 2 {score} Weight 2014-11-11 106.14 kg BMI (Body Mass Index) 2014-11-11 32.64 kg/m2 Height 2014-07-23 180.34 cm Pain 2014-07-23 1 {score} Weight 2014-07-23 108.41 kg BMI (Body Mass Index) 2014-07-23 33.33 kg/m2 Height 2014-04-28 182.88 cm Pain 2014-04-28 4 {score} Weight 2014-04-28 109.32 kg BMI (Body Mass Index) 2014-04-28 32.69 kg/m2 Pain 2014-01-06 {score} Pain 2013-10-09 {score} Goals No goals are recorded Health Concerns No Information
--- OUTSIDE RECORDS SUMMARY | 2020-01-11 16:46 | XMS REPORT | Summary of Care ---
:1950 Author Organization [facility] Address 1 [facility] JIMENA Aguilar [address] Care Team Providers Name Role Phone Mercedes Robb Primary Care Provider Reason for Visit Reason Comments Follow Up f/u [facility] visit for Chest Pain 11/14/2019. Patient states no CP since 11/14. Has not started Amlodipine as yet, Rx is at pharmacy as of today. Encounter Details Date Type Department Care Team Description 11/18/2019 Office Visit Albania Doty PA Essential hypertension (Primary Dx); Cardiology 1 [facility] Coronary artery disease involving standing rock coronary artery of standing rock heart without angina pectoris; [address] [facility] JIMENA Aguilar [address] Acute ischemic left ASSISTED LIVING HOME DIRECTOR stroke (HCC) [place] [address] [phone] Allergies Active Allergy Reactions Severity Noted Date Comments Hebert Inhibitors Respiratory Reaction 07/20/2009 cough Rosuvastatin Musculoskeletal 03/05/2014 Gabapentin Other 04/15/2018 Out of it, loses it Atorvastatin Calcium Musculoskeletal 10/02/2007 myalgias Pravastatin Musculoskeletal 05/22/2012 Muscle aches Simvastatin Musculoskeletal Medium 04/27/2012 Muscle ache Statins Other 04/15/2018 Severe leg cramps Ezetimibe-Simvastatin Other 02/22/2008 documented as of this encounter (statuses as of 11/19/2019) Medications Medication Sig Dispensed Refills Start End Date Status Date cholecalciferol Take 1,000 0 Active (VITAMIN D) 1000 Units by UNITS Oral Tab mouth DAILY. Folic Acid 800 MCG Take by 0 Active Oral Tab mouth DAILY. REPATHA SURECLICK INJECT 140MG 6 Pre-filled 3 Active 140 MG/ML BENEATH THE Pen Syringe 9 Subcutaneous SKIN EVERY 2 Solution WEEKS Auto-injectorIndica tions: Lipid disorder Omytn-7-ruyh Ethyl TAKE ONE 360 Cap 3 Active Esters 1 g Oral CAPSULE BY 9 CapIndications: MOUTH FOUR Osteoarthritis, TIMES A DAY unspecified osteoarthritis type, unspecified site Tamsulosin HCl TAKE ONE 90 Cap 3 Active (FLOMAX) 0.4 MG CAPSULE BY 9 Oral MOUTH DAILY CapIndications: Benign prostatic hyperplasia with lower urinary tract symptoms metoprolol TAKE ONE 90 Tab 3 Active succinate (TOPROL TABLET BY 9 XL) 50 MG Oral MOUTH DAILY TABLET SR 24 HRIndications: Coronary artery disease involving standing rock coronary artery of standing rock heart without angina pectoris finasteride TAKE ONE 90 Tab 3 Active (PROSCAR) 5 MG Oral TABLET BY 9 Tab MOUTH EVERY DAY CYCLOBENZAPRINE HCL Take by 0 Active POIndications: mouth. workmans comp for Indications: hip workmans comp for hip metFORMIN TAKE TWO 360 Tab 2 Active (GLUCOPHAGE XR) 500 TABLETS BY 9 MG Oral TABLET SR MOUTH TWICE 24 HRIndications: DAILY Diabetes mellitus without complication (HCC) metFORMIN Take 1 Tab 180 Tab 1 Active (GLUCOPHAGE XR) 500 by mouth 9 MG Oral TABLET SR TWICE DAILY. 24 HR Aspirin 81 MG Oral Take 81 mg 0 Active Tab by mouth DAILY. nitroglycerin Place 1 Tab 25 Tab 5 Active (NITROSTAT) 0.4 MG under tongue 0 Sublingual SL Tab EVERY FIVE MINUTES NEEDED for chest pain for up to 3 doses. apixaban (ELIQUIS) Take 1 Tab 180 Tab 3 Active 5 MG Oral Tab by mouth 0 TWICE DAILY. clopidogrel Take 1 Tab 90 Tab 3 11/19/19 Discontinued (PLAVIX) 75 MG Oral by mouth 0 20 (Provider Tab DAILY. Discontinued) documented as of this encounter (statuses as of 11/19/2019) Active Problems Problem Noted Date Myofascial pain 02/12/2019 Piriformis syndrome of right side 07/26/2018 Overview: Added automatically from request for surgery [id number] Acute ischemic left [facility]ISTED [facility]IVING HOME DIRECTOR stroke 04/15/2018 Piriformis syndrome 03/08/2018 Sciatica 01/25/2018 Spinal stenosis, lumbar region, without neurogenic claudication 07/10/2017 Essential hypertension 05/09/2016 Statin intolerance 05/09/2016 Type 2 diabetes mellitus without complication 06/01/2015 Overview: Care plan done 06/09/2015 Elbow pain, right 08/28/2013 BMI 35.0-35.9,adult 05/22/2012 Overview: This patient's BMI has been calculated and is above average, and BMI management plan is completed. General patient education discussion including: obesity- related excess mortality Hip pain, acute, left 12/24/2008 Back pain 12/24/2008 Lipid disorder 10/02/2007 Rotator cuff tear 10/02/2007 IBS (irritable bowel syndrome) 10/02/2007 Neck pain 10/02/2007 Pain in joint, shoulder region 10/02/2007 Chronic pain 10/02/2007 Personal history of colonic polyps 10/02/2007 Degeneration of cervical intervertebral disc 10/02/2007 Transient ischemic attack 10/02/2007 Overview: History of transient ischemic attack Coronary artery disease 10/02/2007 Overview: History of Myocardial infarction with stent placements 2004; [facility] 3 VESSEL DS- rca STented; LAD - 50%; 90% ostial lesions of cfx- nuclear st 08/24 asympto, 69% EF- medical management; [address] in arteries- fall S/p CABG August [address] [facility] [place], [place] [address] Chelsi Nair, accidental 10/02/2007 Overview: History of fall in 1999, hematoma to hip and back areas Replaced inactive diagnosis documented as of this encounter (statuses as of 11/19/2019) Resolved Problems Problem Noted Date Resolved Date Hypertension 10/02/2007 03/20/2018 Tobacco abuse 10/02/2007 02/22/2008 Spinal stenosis 10/02/2007 03/20/2018 documented as of this encounter (statuses as of 11/19/2019) Immunizations Name Administration Dates Next Due DTAP Vaccine 06/18/2012 H1N1 Injectable Adult 09/07/2009 Influenza (IM) Preservative Free 10/27/2010 Influenza Vaccine 65 Yrs + 07/08/2019 Influenza Vaccine High Dose 07/18/2018 Influenza Virus Vaccine - Whole 07/02/2003 Influenza Virus Vaccine Pres Free 6-35 07/20/2017, 07/13/2016, 07/07/2014 Months Pneumococcal Conjugate(13 Valent) 05/01/2019 TDAP Vaccine 01/08/2018 documented as of this encounter Social History Tobacco Use Types Packs/Day Years Used Date Former Smoker Cigarettes, Pipe, Cigars 0.5 5 Quit: 09/18/1971 Smokeless Tobacco: Never Used Alcohol Use Drinks/Week oz/Week Comments Not Currently monthly Sex Assigned at Date Recorded Not on file documented as of this encounter Last Filed Vital Signs Vital Sign Reading Time Taken Comments Blood Pressure 134/54 11/18/2019 2:56 PM EST Pulse 63 11/18/2019 2:56 PM EST Temperature - - Respiratory Rate - - Oxygen Saturation 94% 11/18/2019 2:56 PM EST Inhaled Oxygen Concentration - - Weight 101.2 kg (223 lb) 11/18/2019 2:56 PM EST Height - - Body Mass Index 30.24 09/16/2019 11:47 AM EST documented in this encounter Patient Instructions Patient InstructionsAlbania Zeng PA - 11/18/2019 3:00 PM ESTGeneral Instructions: ?? I Strongly recommended to take your medication regularly as prescribed and DO NOT stop any medications without consulting a physician. ?? Please follow a Low-salt, low carbohydrate diet. ?? Keep yourself physically active if you are able. ?? Try to do a moderate level exercise (Brisk walking), at least 150 minutes per week or 30-60 minutes a day for modest weight loss. ?? Always keep a watch on your blood pressure and cholesterol. Keep the blood pressure between <130/80 mmHg and LDL cholesterol level < 70mg/dl if you have a history of coronary artery disease, or <100 mg/dl if you do not ?? Please do not hesitate to call sooner than scheduled if there is a worsening of symptoms or development of new symptoms Follow up: ?? Follow up in [address] Lopez or sooner, if necessary. ?? Medication changes today: Start Norvasc 5mg daily. ?? Bloodwork to be checked: Get the blood work drawn on 12/25/[address] Robb ordered documented in this encounter Progress Notes Albania Zeng PA - 11/18/2019 3:00 PM EST [facility] Note Patient: Prashanth Marshall Date of : 1950 Date of Service: 11/18/2019 REFERRING PRACTITIONER: Joshua Lopez PRIMARY CARE PROVIDER: Mercedes Rbob Chief Complaint: Chief Complaint Patient presents with ? Follow Up f/u [facility] visit for Chest Pain 11/14/2019. Patient states no CP since 11/14. Has not started Amlodipine as yet, Rx is at pharmacy as of today. HPI obtained from patient and from [facility] paperwork. History of Present Illness: We had the pleasure of seeing Prashanth Marshall today. He is a 69-y.o. male with a PMH of HTN, hyperlipidemia, obesity, DM2, TIA, history of Agent Glynn exposure, and CAD s/p NSTEMI 2007 with multiple prior stents and CABG 08/26/2010 @ [facility] (WICK-->LAD, SVG-->PDA, sequential SVG-->OM, Diag). ?He also has statin intolerance and is on Repatha and had CVAx 2 in March and June 2018. ?ILR implanted 07/2018 after his strokes has shown no Afib to date. ?He was recently seen at [facility] and underwent a cardiac catheterization on 09/04/2019 which revealed a total occlusion of the sequential segment of the saphenous vein graft to the OM. This lesion was unable to be intervened on and he was recommended for medical management with Aspirin and Plavix. He presents today for follow up of his recent hospitalization at [facility] 11/14-11/15/2019 forchest pain with radiation to his left arm on exertion walking up a few steps associated with diaphoresis. Pain lasted about 20 minutes, and subsiding after taking a SL nitro. Upon arrival to the ED, his troponins were negative x3 and his EKG did not show any changes from prior. He underwent a regular Exercise Stress Test on 11/15/2019 and exercised for 6 minutes (7 mets) without chest pain and the EKGdid not show any ischemic changes. Norvasc 5mg daily was added to his regimen, but he did not start it yet because of pharmacy issues. Today, he reports feeling well and in his usual state of health. He has had no further episodes of chest discomfort and is not able to elicit the pain with exertion. Constitutional: Patient denies fever, febrile illness. Denies fatigue. Neurologic: Denies transient ischemic attack or cerebrovascular accident signs or symptoms. Denies syncope or presyncopal episodes. Cardiovascular: POSITIVE chest pain, denies palpations, denies lower extremity edema. Respiratory: denies shortness of breath, Denies PND, denies orthopnea. Gastrointestinal: Denies melena. Genitourinary: Denies hematuria Musculoskeletal: denies claudication. All other remaining systems are negative. Except that stated above in history of present illness Cardiac Studies: ILR interrogation 09/27/2019: This visit was performed remotely. Heart rates ranged between 50-90 bpm the majority of the time. There was one symptom on 07/17/19 which shows bradycardia rate 50's with regular R:R intervals. There was one 2 minute 13 second atrial fibrillation episode that occurred on 08/15/19 03:56 a.m. There was one episode of under sensing that was recorded as a false pause episode. Treadmill Exercise Stress Test 11/15/2019 @[facility]: Fairly good exercise capacity for age (7 mets), no objective evidence for inducible ischemia under the conditions of the test Cardiac Catheterization 09/06/2019 at [facility]: Ost Ramus to Ramus lesion is 40% stenosed. Prox LAD lesion is 95% stenosed. Origin to Prox Graft lesion between 1st Diag and 2nd Mrg is 100% stenosed. Ost 2nd Mrg lesion is 99% stenosed. Prox RCA to Mid RCA lesion is 100% stenosed. Normal LVEF 3 VD WICK to LAD patent SVG to D1 patent but sequential segment to OM occluded SVG to RCA patent ? ILR Interrogation?06/25/19: This visit was performed remotely. There have been no recorded arrhythmias. Heart rates ranged between 60-80 bpm the majority of the time. ? TTE at [facility] 06/20/18: CONCLUSIONS 1. This is a complete two-dimensional transthoracic echocardiogram (2D, M-mode, Doppler and color flow Doppler). 2. The left ventricle size is normal. 3. Left ventricular wall thickness is normal. 4. Overall LV systolic function is normal. 5. Estimated LVEF 55 - 60%. 6. The right ventricular systolic function is normal. 7. The left atrium size by volume measurement is mildly abnormal (35-41 ml/m2). 8. There is trace aortic regurgitation. 9. There is trace mitral regurgitation. 10. Trace/mild (physiologic) pulmonic regurgitation present. 11. No significant change compared with prior report of 16-Apr-2018. ? Holter 10/10/16: FINDINGS: 1. The rhythm throughout the 24-hour recording was normal sinus in origin, with a minimum heart rate of 46 beats per minute, average heart rate of 66 beats per minute, and maximum heart rate of 137 beats per minute. 4% of the recording was spent in tachycardia and 39% in bradycardia, with a maximum R:R interval of 1.8 seconds. 2. Occasional ventricular ectopy was seen, totaling 990 beats, which is 1% of the recording. This consisted of isolated, monomorphic PVCs. 3. Rare, isolated supraventricular ectopy was seen, totaling less than 1% of the recording. 4. No episodes of atrial fibrillation or atrial flutter or any other sustained tachy or bradyarrhythmias were identified. 5. No patient diary events were reported. ? CONCLUSIONS: 24-hour Holter monitor recording reveals frequent sinus bradycardia and occasional, monomorphic, asymptomatic ventricular ectopy as described. ? TTE 10/10/16: FINAL IMPRESSION: Mild concentric LVH with moderate left atrial enlargement. Low normal LV systolic function with very mild LAD distribution wall motion abnormalities, as described. Estimated LVEF 50-55%. Grade II (moderate) diastolic dysfunction. Normal right heart size and RV systolic function. Aortic valve sclerosis with mild regurgitation and no significant stenosis. Mild mitral and tricuspid regurgitation. No pericardial effusion. ? Exercise Stress Echo at [facility] 11/14/14: Patient Active Problem List Diagnosis ? Lipid disorder ? Rotator cuff tear ? IBS (irritable bowel syndrome) ? Neck pain ? Pain in joint, shoulder region ? Chronic pain ? Personal history of colonic polyps ? Degeneration of cervical intervertebral disc ? Transient ischemic attack ? Coronary artery disease ? Fall, accidental ? Hip pain, acute, left ? Back pain ? BMI 35.0-35.9,adult ? Elbow pain, right ? Type 2 diabetes mellitus without complication (HCC) ? Essential hypertension ? Statin intolerance ? Spinal stenosis, lumbar region, without neurogenic claudication ? Sciatica ? Piriformis syndrome ? Acute ischemic left ASSISTED LIVING HOME DIRECTOR stroke (HCC) ? Piriformis syndrome of right side ? Myofascial pain Past Medical History: Diagnosis Date ? Back pain ? Chronic pain 10/02/2007 ? Colon polyp ? Degeneration of cervical intervertebral disc 10/02/2007 ? Diabetes mellitus (HCC) ? Fall - accidental 10/02/2007 History of fall in 2000, hematoma to hip and back areas ? Fractures ? Hyperlipidemia 10/02/2007 ? Hypertension 10/02/2007 ? Hypertension ? IBS (irritable bowel syndrome) 10/02/2007 ? Neck pain 10/02/2007 ? Pain in joint, shoulder region 10/02/2007 ? Past myocardial infarction 10/02/2007 History of Myocardial infarction with stent placements ? Personal history of colonic polyps 10/02/2007 ? Rotator cuff tear 10/02/2007 ? Spinal stenosis 10/02/2007 ? Tobacco abuse 10/02/2007 ? Transient ischemic attack 10/02/2007 History of transient ischemic attack Past Surgical History: Procedure Laterality Date ? COLONOSCOPY DIAGNOSTIC ? INSERTION OF CORONARY ARTERY STENT(S) 1\8\09 three right coronaryartery,now has five stents ? MD CABG, VEIN, TWO quadruple bypass ? MD IMPLANTATION PT-ACTIVATED CARDIAC EVENT RECORDER N/A 08/02/2018 Procedure: INSERTION OF LOOP RECORDER; Surgeon: Mohan Oneill MD; Location: [facility] Allergies Allergen Reactions ? Simvastatin Musculoskeletal Muscle ache ? Hebert Inhibitors Respiratory Reaction cough ? Crestor [Rosuvastatin] Musculoskeletal ? Gabapentin Other Out of it, loses it ? Lipitor [Atorvastatin Calcium] Musculoskeletal myalgias ? Pravastatin Musculoskeletal Muscle aches ? Statins Other Severe leg cramps ? Vytorin [Ezetimibe-Simvastatin] Other Current Outpatient Medications Medication Sig ? Aspirin 81 MG Oral Tab Take 81 mg by mouth DAILY. ? cholecalciferol (VITAMIN D) 1000 UNITS Oral Tab Take 1,000 Units by mouth DAILY. ? clopidogrel (PLAVIX) 75 MG Oral Tab Take 1 Tab by mouth DAILY. ? CYCLOBENZAPRINE HCL PO Take by mouth. Indications: workmans comp for hip ? finasteride (PROSCAR) 5 MG Oral Tab TAKE ONE TABLET BY MOUTH EVERY DAY ? Folic Acid 800 MCG Oral Tab Take by mouth DAILY. ? metFORMIN (GLUCOPHAGE XR) 500 MG Oral TABLET SR 24 HR TAKE TWO TABLETS BY MOUTH TWICE DAILY ? metFORMIN (GLUCOPHAGE XR) 500 MG Oral TABLET SR 24 HR Take 1 Tab by mouth TWICE DAILY. ? metoprolol succinate (TOPROL XL) 50 MG Oral TABLET SR 24 HR TAKE ONE TABLET BY MOUTH DAILY ? nitroglycerin (NITROSTAT) 0.4 MG Sublingual SL Tab Place 1 Tab under tongue EVERY FIVE MINUTES NEEDED for chest pain for up to 3 doses. ? Dofui-6-neur Ethyl Esters 1 g Oral Cap TAKE ONE CAPSULE BY MOUTH FOUR TIMES A DAY ? REPATHA SURECLICK 140 MG/ML Subcutaneous Solution Auto-injector INJECT 140MG BENEATH THE SKIN EVERY 2 WEEKS ? Tamsulosin HCl (FLOMAX) 0.4 MG Oral Cap TAKE ONE CAPSULE BY MOUTH DAILY No current facility-administered medications for this visit. Family History Problem Relation Age of Onset ? Arthritis-Rheumatoid Mother ? Heart Mother ? Cancer Father Social History Socioeconomic History ? Marital status: Spouse name: Not on file ? Number of children: Not on file ? Years of education: Not on file ? Highest education level: Not on file Occupational History ? Not on file Social Needs ? Financial resource strain: Not on file ? Food insecurity Worry: Not on file Inability: Not on file ? Transportation needs Medical: Not on file Non-medical: Not on file Tobacco Use ? Smoking status: Former Smoker Packs/day: 0.50 Years: 5.00 Pack years: 2.50 Types: Cigarettes, Pipe, Cigars Last attempt to quit: 09/18/1971 Years since quittin.2 ? Smokeless tobacco: Never Used Substance and Sexual Activity ? Alcohol use: Not Currently Comment: monthly ? Drug use: No ? Sexual activity: Not Currently Partners: Female Lifestyle ? Physical activity Days per week: Not on file Minutes per session: Not on file ? Stress: Not on file Relationships ? Social connections Talks on phone: Not on file Gets together: Not on file Attends mandaen service: Not on file Active member of club or organization: Not on file Attends meetings of clubs or organizations: Not on file Relationship status: Not on file ? Intimate partner violence Fear of current or ex partner: Not on file Emotionally abused: Not on file Physically abused: Not on file Forced sexual activity: Not on file Other Topics Concern ? Not on file Social History Narrative Lives in [place] with and cat. 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 General: Well nourished, alert 69-y.o. male in NAD HEENT: anicteric, MMM, no E/E OP, conj pink Neck: No carotid bruits CV: RRR, +ROMAN Pulm: CTA bilaterally without wheezes, rhonchi, or rales. No increased work of breathing. Abd: soft, NT, ND, +BS. + ecchymosis on right lower abdomen 2/2 heparin injection site Ext: No lower extremity edema, no cyanosis, no cords, redness, or warmth, 2+ distal pulses Neuro: no gross focal deficits Skin: no visible lesions Labs: Lab Results Component Value Date NA 138 08/26/2019 K 4.3 08/26/2019 CL 104 08/26/2019 CO2 26 08/26/2019 GLUCOSE 128 (H) 08/26/2019 BUN 22 (H) 08/26/2019 CREATININE 1.0 08/26/2019 CALCIUM 9.3 08/26/2019 TP 6.8 08/26/2019 ALBUMIN 3.9 08/26/2019 AST 43 08/26/2019 ALT 43 08/26/2019 ALK 56 08/26/2019 TBILI 0.4 08/26/2019 EGFR >60 08/26/2019 No results found for: BNP Lab Results Component Value Date CHOL 146 08/26/2019 TRIG 172 (H) 08/26/2019 HDL 33 (L) 08/26/2019 LDL 79 08/26/2019 LDLHDLRATIO 2.4 08/26/2019 CHOLHDLRATIO 4.4 08/26/2019 Assessment & Plan: Prashanth Marshall is a 69-y.o. male with ICD-9-CM ICD-10-CM 1. Essential hypertension 401.9 I10 2. Coronary artery disease involving standing rock coronary artery of standing rock heart without angina .01 I25.10 3. Acute ischemic left ASSISTED LIVING HOME DIRECTOR stroke (HCC) 434.91 I63.532 1.?Coronary Artery Disease, s/p multiple stents and CABG:??Unclear if his chest pain wastruly cardiac, or of it had more to do with his chronic spine/ nerve pain, vs. MSK, vs. GI related. Today, he is asymptomatic from an ischemic standpoint. His cardiac catheterization at [facility] showed chronic total occlusion of his SVG to OM graft. The lesion was unable to be intervened onand he was recommended for medical therapy. recommend the following medical regimen: Antiplatelets:?Continue Aspirin 81mg. Will discontinue Plavix as below. Statin: ?Historically intolerant of almost every statin and had CK and LFT abnormalities from statins. ?He's been tolerating the Repatha fine, and his LDL 30 09/05/19 at [facility]. Willcontinue Repatha. Beta-bipin: ?Cont Toprol XL. Anti-anginal: Norvasc 5mg was recently started at [place], but he did not start is yet becauseof pharmacy issues. HEBERT-inhibitor/ARB:??Stopped taking losartan on his own?due to concerns about the recall on some lots of it. Since his BP is good, Dr. Lopez felt it was OK to remain off for now (goal BP < 130/80 mmHg). He had a TTE done recently at [place], but they did not send the results. Will reach out to them to have it sent over. ? ? 2. Recurrent CVA/ short run of paroxysmal atrial fibrillation on recent ILR interrogation: As discussed with Dr. Lopez, will start Eliquis 5mg BID. Although the duration of atrial fibrillation was short (~2 mins), will have a low threshold for starting AC given his history of recurrent CVAs. 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 Recommend he use proper head protection with a helmet while doing so. Spoke with patient's pharmacy. 90-day supple of Eliquis 5mg BID will be $ 40. Thank you for allowing me to participate in the care of Prashanth Marshall. We will plan on f/u in our office in [address] Lopez or sooner prn. If you have any questions or concerns please feel free to call our office. JIMENA Arora, 11/19/2019, 08:01 documented in this encounter Plan of Treatment Date Type Specialty Care Team Description 12/25/2019 Lab Internal Medicine 12/27/2019 [facility] Arrhythmia Center 01/01/2020 Office Visit Internal Medicine Creildat, Mercedes, MD [address] [place] [address] [phone] 03/27/2020 [facility] Arrhythmia [place] 05/27/2020 Office Visit Cardiology Joshua Lopez MD [address] [place] [address] [phone] 06/26/2020 [facility] Arrhythmia Center Health Maintenance Due Date Last Done Comments AAA SCREENING/SURVEILLANCE 2013 MEDICARE ANNUAL WELLNESS 11/16/2016 11/17/2015 (Previously VISIT completed), 10/13/2014 FOOT EXAM 03/20/2019 03/20/2018, 03/20/2018, 03/20/2018, Additional history exists Diabetic Eye Exam 05/02/2019 05/02/2018, 01/29/2016 DEPRESSION SCREENING 12/22/2019 12/21/2018 HEMOGLOBIN A1C 12/28/2019 06/28/2019, 04/18/2019, 11/29/2018, Additional history exists FALL RISK ASSESSMENT 05/01/2020 05/01/2019, 05/01/2019 PNEUMOCOCCAL 65+YRS (2 of 2 05/01/2020 05/01/2019 - PPSV23) LIPID DISORDER SCREENING 08/26/2020 08/26/2019, 06/28/2019, 04/18/2019, Additional history exists URINE MICROALBUMIN 08/26/2020 08/26/2019, 11/29/2018, 12/11/2017, Additional history exists ZOSTER IMMUNIZATION SERIES 09/02/2020 Postponed from (1 of 2) 1998 (Vaccine not available) DTaP/Tdap/Td Vaccines (3 - 01/09/2028 01/08/2018, 06/18/2012 Tdap) HEPATITIS C SCREENING Completed 07/06/2006, 03/15/2002 HEPATITIS A IMMUNIZATION Aged Out No longer eligible SERIES based on patient's age to complete this topic HPV IMMUNIZATION SERIES Aged Out No longer eligible based on patient's age to complete this topic MENINGOCOCCAL VACCINE IMM Aged Out No longer eligible based on patient's age to complete this topic documented as of this encounter Goals Goal Patient Goal Associated Recent Patient-Stated? Author Type Problems Progress Blood Pressure Blood Pressure 134/54 No Cezar, < 140/90 (11/18/2019 MD Mercedes 2:56 PM EST) Note: This is an individualized treatment (blood pressure) goal for Prashanth Marshall: Displayed above (on the left) is your goal for blood pressure control. Your most recent blood pressure is also shown above, on the right. You should try to achieve blood pressures that are lower than your goal listed above (on the left). Diabetes < 7.0 Diabetes Type 2 diabetes 6.5 (06/28/2019 No Mercedes Robb MD mellitus without 7:10 AM EDT) complication Note: Diabetes Care Plan According to current 2014 ADA guidelines the patient A1C goal is less than 7. The patient's last A1C was Lab Results Lab Results Value Date/Time GLYCO 7.1 05/30/2015 0819 GLYCO 6.1 05/05/2008 1007 The patient is:above goal . As your provider, it is important that I advise you regarding: your current medications and help you with any challenges you may face taking your medications as directed (ex. instructions, cost, side effects, and interactions). Important lifestyle changes:exercise, diet, glucose monitoring and medication compliance your clinical goals and how you can achieve success:weight reduction, exercise plan, diet management and glucose monitoring medication management: N/A diet only patient education/self-management tools provided: Yes To successfully manage my Diabetes I will: have lab work every six months if my previous A1c was 7 or less. If my results were greater than 7, I will have lab work every three months. My goal is to control my diabetes by keeping A1c below 7.0 take medications every day as prescribed by my healthcare provider and if unable to take them I will discuss with my provider. exercise/walk 45 minutes 3 day(s) per week. If I experience chest pain, chest tightness, or shortness of breath, I will seek medical attention immediately. check feet daily. If sores or irritation are noticed, will seek medical attention. follow a low carbohydrate and low fat diet. My goal is an LDL (bad cholesterol) number less than 100 when I have my routine lab work. check blood sugar as instructed and will call my healthcare provider if the results are consistently below 70 or above 300. I will monitor for symptoms of low blood sugar (feeling faint, dizzy, lig htheaded, jittery, sweaty, or hungry), if symptoms are noticed, I will eat or drink something (glucose tabs, orange juice, candy) to help raise sugar. record my blood sugar results (including dextrose sticks). [place] is safe and secure way for you to do this in your medical record online. try to obtain an ideal body weight. My recent weight was Weight: 242 lb ( 109.77 kg). My weight loss goal for my next office visit is 10 lbs - . to prevent kidney problems common to people with diabetes I will complete a yearly Microalbumin to check for protein in urine. I will talk with my healthcare provider about medications to prevent diabetic renal disease. to prevent diabetic retinopathy I will see an eye doctor yearly. A yearly dilated eye exam helps prevent blindness. if currently smoking, will discuss how to quit smoking with my healthcare provider and work towards quitting. Glycohemoglobin A1c < 7.0 Diabetes 6.5 (06/28/2019 7:10 AM No Mercedes Robb MD EDT) Note: This is an individualized treatment (diabetes control, HgbA1C) goal for Prashanth Marshall: Displayed above is your progress towards your HgbA1C goal. Your goal is shown above (on the left); your most recent HgbA1C is shown on the right. Note that lower numbers are better. Keep immunizations current Lifestyle No Mercedes Robb MD Note: This is an individualized lifestyle goal for Prashanth Marshall: Please be sure to keep up-to-date on recommended immunizations. For example, this would include a yearly influenza vaccine. Immunization status can be seen by looking at the Health Maintenance sections of your [facility], Plan of Care, and any After Visit Summaries. Weight loss vs. 18 mo Lifestyle 8.3 (11/18/2019 2:56 PM EST) No Mercedes Robb MD max (lbs) >= 10 Note: This is an individualized lifestyle goal for Prashanth Marshall: Your body mass index (BMI) is more than 30. You should lose weight. A reasonable starting goal is to lose 10 pounds. Displayed above is how many pounds you have lost thus far towards your 10 pound weight loss goal. Take all prescribed medications as directed Self-management No Mercedes Robb MD Note: This is an individualized self-management goal for Prashanth Marshall: Please take all prescribed medications as directed. 1. Do not skip doses. If you cannot afford your medications, talk with your doctor. 2. Use a pill reminder system such as a pill box if needed. Your pharmacist can help you with this. 3. Contact your Pharmacy 5 days before your medication runs out. If you cannot take your medications for any reasons, talk with your doctor. 4. Please bring all of your medication bottles and inhalers (or a list of all your medications/inhalers) with you to every visit. Potential barriers to meeting all of your care plan goals will continue to be addressed on an ongoing basis. 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 ischemic left 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
--- OUTSIDE RECORDS SUMMARY | 2020-01-11 16:46 | XMS REPORT | Continuity of Care Document ---
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 Onset: region and thigh Social History Type Date Description Comments Sex Unknown ETOH Use Occasionally consumes alcohol Tobacco Use Start: Unknown End: Patient is a former smoker Unknown Smoking Status Reviewed: 01/09/20 Patient is a former smoker Exercise Type/Frequency Does not exercise Allergies, Adverse Reactions, Alerts Active Allergies Reaction Severity Comments Date Gabapentin lethargy, cognitive changes 10/29/2013 Statins severe muscle stiffening and cramping 12/17/2013 Medications Active Medications SIG Qnty Indications Ordering Provider Date Voltaren apply 1-2 gms to 100gm Tabatha Celia, 04/15/2019 1% Gel affected area M.DKatherine three- four times a day as needed Metoprolol Unknown Aspirin Ec Unknown Fish Oil Unknown Flomax Unknown Proscar Unknown Folic Acid Unknown Fenofibrate Unknown Zetia 1 by mouth every Unknown 10mg Tablets day Repatha Unknown Cymbalta Unknown Lidoderm 1 apply to Unknown 5% Patches affected area 12 hours on, 12 hours off Medications Administered in Office Medication SIG Qnty Indications Ordering Provider Date Depomedrol 40MG Tabatha Yang M.D. 09/02/2019 Injection Depomedrol 40MG Tabatha Yang M.D. 07/25/2018 Injection Depomedrol 40MG Argelia Bautista RPA-C 07/27/2016 Injection Depomedrol 40MG Tabatha Yang M.D. 08/31/2015 Injection Depomedrol 40MG Tabatha Yang M.D. 08/31/2015 Injection Celestone 3 mg and 3mg Dora Kate-Young, 01/28/2015 Injection M.D. Celestone 3 mg and 3mg Dora Kate-Young, 07/29/2014 Injection M.D. Celestone 3 mg and 3mg Dora Kate-Young, 10/29/2013 Injection M.D. Celestone 3 mg and 3mg Triny Liptak, [facility] 08/22/2013 Injection Celestone 3 mg and 3mg Triny Liptak, [facility]- 08/22/2013 Injection Celestone 3 mg and 3mg Dora Kate-Young, 01/14/2013 Injection M.D. Celestone 3 mg and 3mg Dora Kate-Young, 01/14/2013 Injection M.D. Celestone 3 mg and 3mg Dora Kate-Young, 01/14/2013 Injection M.D. Celestone 3 mg and 3mg Dora Kate-Young, 01/14/2013 Injection M.D. Celestone 3 mg and 3mg Dora Kate-Young, 01/14/2013 Injection M.D. Immunizations Description No Information Available Vital Signs Date Vital Result Comment 01/09/2020 8:56am Height 72 inches 6'0" Weight 228.50 lb with shoes/coat Heart Rate 82 /min BP Systolic Sitting 130 mmHg Ra, reg cuff BP Diastolic Sitting 58 mmHg Ra, reg cuff Body Temperature 97.5 F Pain Level 2 BMI (Body Mass Index) 31.0 kg/m2 09/07/2019 10:10am Height 72 inches 6'0" Weight 223.00 lb Heart Rate 78 /min BP Systolic Sitting 152 mmHg BP Diastolic Sitting 80 mmHg BMI (Body Mass Index) 30.2 kg/m2 Results Description No Information Available Procedures Date Code Description Status 09/02/201940226 Inject/Drain Joint/Bursa Intermediate W/O US Completed Medical Devices Description No Information Available Encounters Type Date Location Provider Dx Diagnosis Office Visit 01/09/2020 [facility] [place] Malave9.032 Primary 8:45a at 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 Plan of Treatment Future Appointment(s):01/30/2020 10:45 am - CHRIS Malave at [facility] at [id number]/09/2020 - KAYODE MalaveCM19.032 Primary osteoarthritis, left wristFollow up:Follow up: 3-4 cmlguD21.532 Pain in left wrist Functional Status Description No Information Available Mental Status Description No Information Available Referrals Description No Information Available
--- OUTSIDE RECORDS SUMMARY | 2020-01-11 16:46 | XMS REPORT | Continuity of Care Document ---
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 Description No Information Available Social History Type Date Description Comments Sex Unknown ETOH Use Rarely consumes alcohol Tobacco Use Start: Unknown End: Unknown Patient is a former smoker Allergies, Adverse Reactions, Alerts Active Allergies Reaction Severity Comments Date Gabapentin Moderate 05/02/2018 Statins MUSCLE ACHES 05/02/2018 Medications Active Medications SIG Qnty Indications Ordering Provider Date Clopidogrel Bisulfate Take 1 Tablet By Unknown Mouth Every Day 75mg Tablets Metformin HCL take one tablet Unknown 500mg by mouth twice a Tablets day Metoprolol Succinate 1 by mouth every Unknown ER day 50mg Tablets ER 24HR Losartan Potassium 1 by mouth every Unknown 100mg day Tablets Tamsulosin HCL 1 by mouth every Unknown 0.4mg day at bedtime Capsules Finasteride 1 by mouth every Unknown 5mg Tablets day Nitrostat 1 tab sl every 5 Unknown 0.4mg Tablets min x3 chest pain Sub Folic Acid 1 tabl by mouth Unknown 800mcg Tablets every day Aspirin Adult Low Dose 1 by mouth every Unknown day 81mg Tablets DR D3 High Potency Unknown 1000Unit Capsules [place] 3 1 by mouth every Unknown 1000mg Capsules day Immunizations Description No Information Available Vital Signs Description No Information Available Results Description No Information Available Procedures Date Code Description Status 10/04/2019 53380 Echocardiogram Complete Completed Medical Devices Description No Information Available Encounters Description No Information Available Assessments Date Code Description Provider 10/04/2019 R07.9 Chest pain, unspecified Joe Conteh MD 09/04/2019 R07.9 Chest pain, unspecified Virgilio Elder M.D., [facility] 09/04/2019 I25.10 Atherosclerotic heart disease of Virgilio Elder M.D. 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
--- OUTSIDE RECORDS SUMMARY | 2020-01-11 16:46 | XMS REPORT | Clinical Summary ---
:1950 Author Organization [facility], Address [address] [place] [address] Care Team Providers Name Role Phone Didi [...] with Dr. Live. F/u Dr. Rm at [facility]. Continue PT when able. Continue lidocaine patch. f/u with me in 3mo.. REQUEST AUTHORIZATION FOR TENS FOR HOME USE. PRIOR UNIT IS BROKEN AND NEEDS REPLACEMENT. Itzel Tolbert MD. cc: Dr. Robb; Dr. Live; Dr. Rm ([facility]) Date of Encounter: 2019-08-29 Plan: PLAN: f/u [...] Tolbert MD. cc: Dr. Robb; Dr. Brooks ([place]); Dr. Live. Date of Encounter: 2019-08-29 Addendum [...] WKS AND THEN 1X/WK FOR 12 WKS Itzle Tolbert MD. cc: Dr. Robb; Dr. Brooks [...] Tolbert MD. cc: Dr. Robb; Dr. Brooks ([place]). Date of Encounter: 2019-01-17 Addendum date 2019-01-17 [...] Tolbert MD. cc: Dr. Robb; Dr. Brooks ([place]) Date of Encounter: 2018-09-03 Addendum date 2018-09-03 [...] be referred to the pain clinic at [facility] to consider IVY. He did see Dr. Gonzalez in the past before he had piriformis release. f/u in 3mo. Itzel Tolbert MD. cc: Dr. Robb. Date of Encounter: 2018-01-17 Addendum date 2018-01-17 source: Referral: REFERRALS: DR DANIEL ROBB via Fax Date of Encounter: 2018-01-17 Addendum date 2018-01-18 source: Doctor: Prashanth will see Dr. aPtel. Oneal thought his ortho appt was the [...] on: 2019-07-10 Encounters Encounter Diagnosis Location Date Spondylolisthesis, lumbar [facility] 2019-12-12 region [...] stenosis of lumbar [facility] 2018-01-17 [facility] Spondylolisthesis, lumbar [facility] 2017-10-25 [facility] Spinal stenosis of lumbar [facility] 2017-10-25 [facility] Spondylolisthesis, lumbar [facility] 2017-07-24 [facility] Sciatica, right side [facility] 2017-07-24 Medicine Spinal stenosis of lumbar [facility] 2017-07-24 [facility] Not specified [facility] 2017-07-06 Medicine Not specified [facility] 2017-06-01 Medicine Not specified [facility] 2017-05-26 Medicine Rupture of hamstring tendon [facility] 2017-05-25 Medicine Spondylolisthesis, lumbar [facility] 2017-05-25 [facility] Sciatica, right side [facility] 2017-05-25 Medicine Not specified [facility] 2017-02-27 Medicine Spondylolisthesis, lumbar [facility] 2017-02-16 [facility] Sciatica, right side [facility] 2017-02-16 Medicine Not specified [facility] 2016-11-03 Medicine Rupture of hamstring tendon [facility] 2016-10-24 Medicine Spondylolisthesis, lumbar [facility] 2016-10-24 [facility] Sciatica, right side [facility] [...] mg 2012-03-07 2014-07-24 Take 1 oral delayed [id number] po release capsule qday. Flexeril 10 mg RxNorm: cyclobenzaprine 10 mg 2012-12-31 2013-11-15 Take 1 oral tablet [id number] po tid prn muscle spasm. Cymbalta 30 mg RxNorm: DULoxetine 30 mg 2014-07-24 2019-05-08 Take oral delayed [id number] 1-2 po release capsule qday Methocarbamol RxNorm: Methocarbamol 750 MG Not 2019-05-30 Take 1 750 MG Oral [id number] Indicated po Q6h Tablet prn muscle spasm Lidocaine 5 % RxNorm: Lidocaine 5 % Not Not Apply External Patch [id number] Indicated Indicated 1-3 to back and remove after 12hrs as needed Baclofen 10 MG RxNorm: Baclofen 10 MG Not 2019-08-29 Take Oral Tablet [id number] Indicated 0.5-1 po bid Cyclobenzaprine RxNorm: Cyclobenzaprine 5 MG Not Not Take HCl 5 MG Oral [id number] HCl Indicated Indicated 1/2 po Tablet qday [...] March 07, 2012RE: Prashanth Marshall.Outpatient f/u visit #13PRIMA CARE PROVIDER: Dr. Robb.CHIEF COMPLAINT: L5-S1 retrolisthesis [...] MS, .cc: Dr. Robb.To: DR. Dixon: Content: May 02, 2012RE: Prashanth MarshallGregpatient f/u visit #14.PRIMARY CARE PROVIDER: Dr. VizcarraIEF COMPLAINT: L5-S1 retrolisthesis and facet arthropathy at [...] complains of dizziness. He works for the [employer] and he is not sure that he [...] least w/in 3 months. Itzel Tolbert, MS, [facility]: Dr. Bulm: LINDSEY TRENT CARNEY & WINDYPhone: Content: SEE NOTESTo: DR. Dixon: Content: SEE NOTESTo : DR. Essie CONNORPhone: Content: SEE NOTESTo: DR. Dixon: [phone]: SEE NOTESTo: LINDSEY TRENT CARNEY &ampMateo TEMPLEPhone: Content: see office note (s)To: DR. BARRETTPhone: Content: see office note (s)To: DR. Essie CONNORPhone: Content : see office note (s)To: DR. Dixon: Content: see office note (s)Referral to physician (procedure)To: DR DANIEL Dixon: [phone]: Please see Dr. Tolbert's note.Referral to physician (procedure)To : DR DANIEL Dixon: [phone]: Please see Dr. Tolbert's note.Referral to physician (procedure)To: DR DANIEL Dixon: [phone]: Please see Dr. Tolbert's Note.Referral to physician (procedure)To : DR DANIEL Dixon: [phone]: Please see Dr. Tolbert's noteReferral to physician (procedure)To: DR DANIEL Dixon: [phone]: Please see Dr. Tolbert's noteReferral to physician (procedure)To: DR DANIEL Dixon: [phone]: Please see Dr. Tolbert's note.Referral to physician (procedure)To: DR DANIEL Dixon: [phone]: Please see Dr. Tolbert's Note.Referral to physician (procedure)To : DR DANIEL Dixon: [phone]: Please see Dr. Tolbert's Note.Referral to physician (procedure)To: DR DANIEL Dixon: [phone]: Please see Dr. Tolbert's note.Referral to physician (procedure)To : DR DANIEL Dixon: [phone]: Please see Dr Tolbert's note.Referral to physician (procedure)To: DR DANIEL Dixon: [phone]: Please see Dr. Tolbert's noteReferral to orthopedic surgeon ( procedure)To: RASHAWN Allenx: Content: Please see 's noteReferral to physician (procedure)To: DR DANIEL Dixon: [phone]: Please see Dr. Tolbert's note.Referral to neurosurgeon (procedure) To: Vassilios DimopoulosPhone: content: Please see Dr. Tolbert's note. Results Test Name Value Date Status Lab Name and Specimen Info Address 2019-07-11 [facility] ([phone]) [facility] [address] [place] [address] ([phone]) ([phone]) [place] [address] 2019-07-11 [place] [address] [address] [place] [address] [place] [address] Psychiatric hospital, demolished [address] [facility] 2019-07-[address] [place] [address] [place] [address] Care 2019-07-11 [place] [address] [place] [address] Imaging - Main [place] 2019-07-11 [facility] Imaging - [address] [place] [address] Imaging - [place] [facility] 2019-07-[address] [address] CC:Itzel Tolbert MD; 2019-07-11 [facility] Daniel Robb MD; Vassilios [facility] [address] [facility] [place] [address] 2019-07-11 [place] [address] [place] [address] 2019-07-11 [place] [address] [place] [address] 2019-07-11 [place] [address] [place] [address] 2019-07-11 [place] [address] [place] [address] Copy to: 2019-07-11 [address] [place] [address] [place] [address] 2019-07-11 [place] [address] [place] [address] Transcribed Date/Time: 2019-07-11 [facility] 07/11/19 1039 [facility] [address] [place] [address] Dictated Date/Time: 2019-07-11 [facility] 07/11/19 1039 [facility] [address] [place] [address] Dictated By: Valerio Xavier 2019-07-11 [facility] Sarai MARRERO [facility] [address] [place] [address] 2019-07-11 [place] [address] [place] [address] <Electronically signed by 2019-07-11 [facility] Valerio Moon MD in OV> [facility] [address] [facility] 07/11/19 1041 [place] [address] 2019-07-11 [facility] [address] [place] [address] [place] [address] 2019-07-11 [place] [address] [place] [address] 2019-07-11 [place] [address] [place] [address] 2019-07-11 [facility] [address] [place] [address] IMPRESSION: MODERATE TO 2019-07-11 [facility] SEVERE DEGENERATIVE DISC [address] [place] [address] 2019-07-11 [facility] [address] [place] [address] There is moderate to 2019-07-11 [facility] severe multilevel [address] [place] [address] 2019-07-11 [facility] [address] [place] [address] for subluxation with 2019-07-11 [facility] flexion and extension. [address] [place] [address] FINDINGS: The vertebra 2019-07-11 [facility] are in normal alignment. 101 [facility] No [place] [address] is no evidence 2019-07-11 [facility] [address] [place] [address] TECHNIQUE: Neutral, 2019-07-11 [facility] flexion and extension 101 [facility] [place] [address] lumbar spine were obtained. 2019-07-11 [facility] [address] [place] [address] COMPARISON: Comparison 2019-07-11 [facility] is made with a prior study [facility] [address] [facility] from July 05, [place] [address] 2019-07-11 [place] [address] [place] [address] INDICATION: 2019-07-11 [facility] Spondylolisthesis lumbar 101 [facility] [place] [address] CPT: 21463 2019-07-11 [place] [address] [place] [address] Accession Number: 2019-07-11 [facility] [id number] [facility] [address] [place] [address] Order Information: 2019-07-11 [facility] SP LUMBAR AP/LAT 2-3 VIEWS [facility] [address] [place] [address] 2019-07-11 [place] [address] [place] [address] Exam Date: 07/11/19 2019-07-11 [facility] ADM Status: [facility] [address] [facility] [place] [address] : 1950 Age: 68 2019-07-11 [facility] Sex: M [address] [facility] Location: [address] Physician: 2019-07-11 [facility] Itzel Tolbert MD [address] [place] [address].#: [place] [address] [id number] Patient Name: 2019-07-11 [facility] PRASHANTH MARSHALL [address] [place] [address] Record#: [id number] ph ([phone]) 2019-06-17 [facility] ([phone]) [address] [place] [address] ([phone]) [place] [address] 2019-06-17 [place] [address] [place] [address] [place] [address] [place] [address] 2019-06-17 [facility] [address] [address] Care 2019-06-[address] [address] Imaging - Main [place] 2019-06-17 [facility] Imaging - [address] [place] [address] [facility] Urgent 2019-06-[address] [address] CC:Teena Hutchison, 2019-06-17 [facility] PT; Itzel Tolbert MD; [address] [place] [address] [place] [address] 2019-06-[address] [address] 2019-06-[address] [address] 2019-06-[address] [address] 2019-06-[address] [address] Copy to: 2019-06-[address] [address] 2019-06-[address] [address] Transcribed Date/Time: 2019-06-17 [facility] 06/17/[address] [place] [address] Dictated Date/Time: 2019-06-17 [facility] 06/17/[address] [place] [address] Dictated By: Jose R 2019-06-17 [facility] Justin Posadas MD [facility] [address] [place] [address] 2019-06-17 [place] [address] [place] [address] <Electronically signed 2019-06-17 [facility] by Jose R Posadas [facility] [address] [facility] in OV> 06/17/19 1012 [place] [address] 2019-06-17 [facility] [address] [facility] [place] [address] 2019-06-17 [place] [address] [place] [address] 2019-06-17 [place] [address] [place] [address] 2019-06-17 [place] [address] [place] [address] THERE IS MODERATE 2019-06-17 [facility] NARROWING OF THE CENTRAL [facility], [facility] [address] [facility] CANAL AT L3-L4 [place] [address] NARROWING AT L2-L3. THERE IS MULTILEVEL 2019-06-17 [facility] NEUROFORAMINAL NARROWING [facility] [address] [facility] [place] [address] DEGENERATIVE DISC 2019-06-17 [facility] DISEASE AND [facility] [address] [facility] [place] [address] IMPRESSION: 2019-06-17 [place] [address] [place] [address] 2019-06-17 [place] [address] [place] [address] OTHER: None. 2019-06-17 [place] [address] [place] [address] 2019-06-17 [place] [address] [place] [address] SOFT TISSUES: Renal 2019-06-17 [facility] cysts are noted. [facility] [address] [place] [address] 2019-06-17 [place] [address] [place] [address] significant central 2019-06-17 [facility] canal stenosis. [facility] [address] [place] [address] L5-S1: There is severe 2019-06-17 [facility] right and moderate left [facility] [address] [facility] [place] [address] narrowing. There is no central canal stenosis. 2019-06-17 [facility] [address] [place] [address] L4-L5: There is 2019-06-17 [facility] moderate bilateral [address] [place] [address] narrowing. There is no significant narrowing. There is 2019-06-17 [facility] moderate narrowing of [address] [place] [address] L3-L4: There is 2019-06-17 [facility] broad-based disc bulge. [address] [place] [address] bilateral neuroforaminal narrowing. There is 2019-06-17 [facility] mild narrowing of the [address] [place] [address] L2-L3: There is 2019-06-17 [facility] broad-based disc bulge. [address] [place] [address] bilateral neural foraminal narrowing. There is no 2019-06-17 [facility] significant central [address] [place] [address] L1-L2: There is 2019-06-17 [facility] broad-based disc bulge. [address] [place] [address] neural foraminal stenosis. 2019-06-17 [facility] [address] [place] [address] moderate bilateral 2019-06-17 [facility] neuroforaminal [address] [place] [address] significant central canal T12-L1: There is a left 2019-06-17 [facility] lateral recess disc [address] protrusion measuring 0.4 [place] [address] cm in depth. There is AXIAL IMAGES: 2019-06-17 [facility] [address] [place] [address] 2019-06-17 [facility] [address] [place] [address] throughout the spine. 2019-06-17 [facility] [address] [place] [address] INTERVERTEBRAL DISCS: 2019-06-17 [facility] There is diffuse loss of [address] [place] [address] height and T2 signal MUSCULATURE: There is 2019-06-17 [facility] moderate fatty [address] [place] [address] fatty atrophy. JOINTS: There is facet 2019-06-17 [facility] osteoarthritis most [address] [place] [address] lower lumbar spine. VERTEBRAL BODIES: There 2019-06-17 [facility] is multilevel [address] [place] [address] osteophyte formation. ALIGNMENT: There is 2019-06-17 [facility] grade [address] of L5 [place] [address] are normal in caliber, 2019-06-17 [facility] position, [place] [address] SPINAL CORD, CONUS, AND 2019-06-17 [facility] CAUDA EQUINA: The [address] visualized spinal cord, [place] [address] conus, and cauda equina 2019-06-17 [facility] [address] [place] [address] FINDINGS: 2019-06-17 [facility] [address] [place] [address] 2019-06-17 [facility] [address] [place] [address] T1- and T2-weighted 2019-06-17 [facility] images, coronal [address] T2-weighted [place], [place] [address] sagittal STIR images. TECHNIQUE: The 2019-06-17 [facility] following sequences were [address] [place] [address] spine: Sagittal and axial 2019-06-17 [facility] [address] [place] [address] COMPARISONS: June 2019-09-30 [facility] [address] [place] [address] 2019-06-17 [facility] [address] [place] [address] HISTORY: OTHER FORMS OF 2019-06-17 [facility] SCOLIOSIS, LUMBAR REGION [address] [place] [address] CPT: 477[address] 2019-06-17 [facility] [address] [place] [address] Accession Number: 2019-06-17 [facility] [id number] [facility] [address] [place] [address] Order Information: 2019-06-17 [facility] MRI LUMBAR SPINE W/O [address] [place] [address] 2019-06-17 [facility] [address] [place] [address] Exam Date: 06/17/19 2019-06-17 [facility] ADM [address] Status: [place] [address] : 1950 Age: 2019-06-17 [facility] 68 Sex: M [address] Location: [address] Ordering Physician: 2019-06-17 [facility] Itzel Tolbert MD [address] Acct.#: [place] [address] [id number] Patient Name: 2019-06-17 [facility] PRASHANTH MARSHALL [address] [place] [address] Record#: [id number] Social History Social History Effective Date Never [...]
[2020-01-11 16:59] VITALS: BP 131/66
--- NOTE | 2020-01-11 17:06 | UC ---
Skin Complaint HPI - HPI Summary HPI Summary: 69-year-old male who has a small bruise to his right forearm. He states 2 days ago he was stacking wood so he thinks something may have bitten him. Today he came in because there was a small red dot in the middle and his was concerned. - History of Current Complaint Chief Complaint: UCSkin Time Seen by Provider: 01/11/20 16:48 Stated Complaint: SKIN COMP Hx Obtained From: Patient Onset/Duration: Gradual Onset, Lasting Days Skin Exposure Onset/Duration: Days Ago - Patient noted a small bruise to his right forearm 2 days ago. Onset Severity: Mild Current Severity: None Pain Intensity: 0 Location: Other - Right forearm Aggravating Factor(s): Nothing Alleviating Factor(s): Nothing Associated Signs & Symptoms: Positive: Negative - Allergy/Home Medications Allergies/Adverse Reactions: Allergies Allergy/AdvReac Type Severity Reaction Status Date / Time atorvastatin Allergy Leg Cramps Verified 01/11/20 17:06 ezetimibe Allergy Leg Cramps Verified 01/11/20 17:06 gabapentin Allergy Altered Verified 01/11/20 17:06 Mental Status pitavastatin Allergy Leg Cramps Verified 01/11/20 17:06 pregabalin Allergy Altered Verified 01/11/20 17:06 Mental Status rosuvastatin Allergy Leg Cramps Verified 01/11/20 17:06 simvastatin Allergy Leg Cramps Verified 01/11/20 17:06 Home Medications: Home Medications Finasteride TAB* [Proscar TAB*] 5 mg PO QPM 06/26/13 [History Confirmed 01/11/20 ] Folic Acid TAB* [Folvite TAB*] 1 mg PO QAM 06/26/13 [History Confirmed 01/11/20] Metoprolol Tartrate TAB* [Lopressor TAB*] 75 mg PO QAM 06/26/13 [History Confirmed 01/11/20] Tamsulosin CAP* [Flomax CAP*] 0.4 mg PO QPM 06/26/13 [History Confirmed 01/11/20 ] Wkzoh-3-Tybb Ethyl Esters [Lovaza] 1 cap PO QID 04/07/14 [History Confirmed ] Aspirin [Adult Aspirin Regimen] 81 mg PO DAILY 01/11/20 [History Confirmed 01/10] Cholecalciferol CAP/TAB(NF) [Vitamin D3 CAP/TAB (NF)] 800 unit PO BID 01/11/20 [ History Confirmed 01/11/20] Clopidogrel Bisulfate [Plavix] 75 mg PO DAILY 01/11/20 [History Confirmed ] Evolocumab (NF) [Repatha inj (NF)] 140 mg SUBCUT SEE INSTRUCTIONS 01/11/20 [ History Confirmed 01/11/20] Polyethylene Glycol 3350 [Miralax] 17 gm PO DAILY 01/11/20 [History Confirmed ] PMH/Surg Hx/FS Hx/Imm Hx Previously Healthy: Yes Endocrine History: Dyslipidemia Cardiovascular History: Hypertension - Surgical History Surgical History: Yes Surgery Procedure, Year, and Place: CARDIAC STENTS and BYPASS - 2009;. RT LEG/ HIP 04/2014 [facility];. [facility] (WILL BRING CARD) MODEL HO1972 - WILL NEED CXR ( PLACED 2017 ); - Family History Known Family History: Positive: Unknown - Social History Occupation: Retired Lives: With Family Alcohol Use: Rare Substance Use Type: None Smoking Status (MU): Former Smoker Type: Cigarettes Have You Smoked in the Last Year: No When Did the Patient Quit Smoking/Using Tobacco: quit over 40 yrs ago - Immunization History Most Recent Influenza Vaccination: 1011 Most Recent Tetanus Shot: 2011 Most Recent Pneumonia Vaccination: 2009 Review of Systems All Other Systems Reviewed And Are Negative: Yes Skin: Positive: Bruising - Very small circular bruise to the right forearm noted 2 days ago but then there was a small red dot in the middle and his was concerned and wanted him checked today. Patient denies any itching or burning sensation. No fever or chills. Is Patient Immunocompromised?: No Physical Exam Triage Information Reviewed: Yes Appearance: Well-Appearing, No Pain Distress, Well-Nourished Vital Signs: Initial Vital Signs Temp 98.4 F 01/11/20 16:55 Pulse 71 01/11/20 16:55 Resp 18 01/11/20 16:55 BP 131/66 01/11/20 16:55 Pulse Ox 100 01/11/20 16:55 Vital Signs Reviewed: Yes Musculoskeletal: Positive: Other: - Good peripheral pulses neuro sensation and capillary refill. Full range of motion of the extremities. Skin: Positive: Other - Patient has a circular bruise to the right forearm measuring approximately 0.75 cm in diameter with some yellowing to the area and one very small red dot in the middle. Area is nontender, no streaks, erythema, swelling or deformity is noted. Course/Dx - Course Course Of Treatment: Patient is comfortable here. I think he just needed reassurance that the area was not infected. - Diagnoses Provider Diagnosis: Insect bite Discharge ED - Sign-Out/Discharge Documenting (check all that apply): Patient Departure All imaging exams completed and their final reports reviewed: No Studies - Discharge Plan Condition: Good Disposition: HOME Patient Education Materials: Insect Bite or Sting (ED) Referrals: Mercedes Robb MD [Primary Care Provider] - Additional Instructions: Observe for any worsening symptoms and follow-up with your primary care provider as needed. - Billing Disposition and Condition Condition: GOOD Disposition: Home
== END 2020-01-11 17:16 | disposition home or self-care (01) ==
LOC: UCCORT 16:18
DX: S50.861A Insect bite (nonvenomous) of right forearm, initial encounter (principal); S50.11XA Contusion of right forearm, initial encounter; W57.XXXA Bitten or stung by nonvenomous insect and other nonvenomous arthropods, initial encounter; Y93.89 Activity, other specified; Y92.89 Other specified places as the place of occurrence of the external cause; E78.5 Hyperlipidemia, unspecified; I10 Essential (primary) hypertension; Z79.82 Long term (current) use of aspirin; Z79.899 Other long term (current) drug therapy; Z95.1 Presence of aortocoronary bypass graft; Z95.5 Presence of coronary angioplasty implant and graft; Z88.8 Allergy status to other drugs, medicaments and biological substances; Z87.891 Personal history of nicotine dependence
CPT/HCPCS: 99211; G0463